=== PATIENT | female | born 1935 | race Hispanic/Latino ===

== ENCOUNTER 2018-10-27 13:42 | Inpatient (IN) | payer MEDICARE ==
[~2018-10-27] VITALS: Ht 162.6 cm; Wt 115.2 kg
[~2018-10-27 13:42] MED LIST: ALLOPURINOL100 MG PO; ATIVAN1 MG PO; CALCITRIOL0.25 MCG PO; FAMOTIDINE20 MG PO; FERROUS SULFAT325 MG PO; FISH OIL500 MG PO; FUROSEMIDE40 MG PO; KLOR-CON20 MEQ PO; METOPROLOL SUCC50 MG PO; MINOCIN50 MG PO; OXYBUTYNIN CHLOR5 M1; OXYBUTYNIN CHLOR5 MG PO; PANTOPRAZOLE SO40 MG PO; POLYETHYLENE GL17 GM PO; SIMVASTATIN40 MG PO; TRAZODONE HCL100 MG PO; ULTRAM50 MG PO; VITAMIN C250 MG PO; XARELTO20 MG PO; XOPENEX HFA15 GM
--- OUTSIDE RECORDS SUMMARY | 2018-10-27 13:45 | XMS REPORT | Summary of Care ---
Author Author [facility] Organization [facility] Address Unknown Phone Unavailable Encounter HQ [employer]tr_rejigena(FIN) [id number] Date(s): 03/23/18 - 03/23/18 [facility] [address] [place] [address]- [phone] Discharge Disposition: Home or Self Care Attending Physician: Clare Bonilla MD Referring Physician: Clare Bonilla MD Vital Signs No data available for this section Problem List No data available for this section Allergies, Adverse Reactions, Alerts No data available for this section Medications No data available for this section Results No data available for this section Immunizations No data available for this section Procedures No data available for this section Social History No data available for this section Assessment and Plan No data available for this section
--- OUTSIDE RECORDS SUMMARY | 2018-10-27 13:45 | XMS REPORT | Continuity of Care Document ---
Author Author [facility] Address Unknown Phone Unavailable Problems Problem Status Onset Date Classification Date Reported Comments Source R60.9 Active 03/16/2018 [facility] R60.9 N18.4 I12.9 E66.01 Active 09/04/2017 [facility] EDEMA, UNSPECIFIED Active [facility] PERIPHERAL VASCULAR DISEASE, UNSPECIFIED Active [facility] Medications Medication Details Route Status Patient Instructions Ordering Provider Order Date Source Allergies, Adverse Reactions, Alerts Substance Category Reaction Severity Reaction type Status Date Reported Comments Source Immunizations Immunization Date Given Site Status Last Updated Comments Source Results Order Name Results Value Reference Range Date Interpretation Comments Source Ext Lower Arterial bilat w pressure US Ext Lower Arterial bilat w pressure US Please refer to heart lab report, located under Vascular in CARE4. 03/23/2018 - - Electronically Signed by: Guillaume Kwan 03/23/18 17:24 FINAL REPORT [facility] Ext Lower Arterial bilat w pressure US Ext Lower Arterial bilat w pressure US Please refer to the heartlab report, located under vascular in CARE4. 09/05/2017 - - Electronically Signed by: Brandi Vega 09/10/17 10:45 FINAL REPORT [facility] Ext Lower Venous Doppler Bilat US Ext Lower Venous Doppler Bilat US Ext Lower Venous Doppler Bilat US CLINICAL HX: R60.9 Edema, unspecified - R60.9 Edema, unspecified; bilateral leg swelling COMPARISON: none TECHNIQUE: Diaz scale imaging, compression techniques and spectral analysis were utilized to evaluate the deep venous system of both lower extremities from the inguinal ligament to the popliteal fossa. FINDINGS: There is adequate compression, respiratory variability, and appropriate response to augmentation in the CFV, FV and popliteal veins in both thighs. The junction of the profunda vein to the SFV is patent bilaterally. Posterior tibial trunk and the saphenous vein demonstrate normal compressibility. IMPRESSION: No evidence for deep vein thrombosis in the examined veins of both lower extremities. SL: [id number] 09/05/2017 - - Read by: Fred Reynolds MD Dictated Date/time: 09/05/17 16:41 Electronically Signed by: Fred Reynolds MD 09/05/17 16:43 FINAL REPORT [facility] Vital Signs Vital Sign Value Date Comments Source Encounters Location Location Details Encounter Type Encounter Number Reason For Visit Attending Provider ADM Date DC Date Status Source [facility] [id number] Clare Bonilla 03/23/2018 03/24/2018 [facility] Procedures Procedure Code Date Perfomer Comments Source
--- OUTSIDE RECORDS SUMMARY | 2018-10-27 13:45 | XMS REPORT ---
Author [facility] Address Unknown Phone Unavailable Care Team Providers Care Consulting Technical Director Name Role Phone Unavailable Unavailable Payers Payer Name Policy Type Policy Number Effective Date Expiration Date Problems This patient has no known problems. Allergies, Adverse Reactions, Alerts Allergy Name Allergy Type Status Severity Reaction(s) Onset Date Inactive Date Treating Clinician Comments No Known Drug Allergies DA Active U 2018-08-10 00:00:00 Penicillins DA Active U 2018-08-10 00:00:00 Sulfa (Sulfonamide Antibiotics) DA Active U 2018-08-10 00:00:00 No Known Drug Allergies DA Active U 2015-06-11 00:00:00 Medications This patient has no known medications.
[2018-10-27 14:28] LABS: BASOPHILS % 0.1 % (0.0-1.0); EOSINOPHILS # (AUTO) 0.1 (0.0-0.4); EOSINOPHILS % 0.7 % (0.0-6.0); HEMATOCRIT 33.8 % (34.2-44.1); HEMOGLOBIN 9.5 g/dL (12.0-16.0); LYMPHOCYTES # (AUTO) 0.5 (1.0-3.2); LYMPHOCYTES % 4.7 % (18.0-39.1); MEAN CORPUSCULAR HEMOGLOBIN 29.5 pg (28-32); MEAN CORPUSCULAR HGB CONC 28.1 g/dL (31-35); MONOCYTES # (AUTO) 0.5 (0.2-0.8); MONOCYTES % 5.1 % (4.4-11.3); PLATELET COUNT 247 x10e3/uL (140-360); RED BLOOD COUNT 3.22 x10e6/uL (3.6-5.1); RED CELL DISTRIBUTION WIDTH 18.8 % (11.7-14.4)
--- NOTE | 2018-10-27 14:33 | Diagnostic Imaging Report ---
Examination: Single AP view of the chest. COMPARISON: 04/23/2017 INDICATION: Cough DISCUSSION: Right internal jugular tunneled hemodialysis catheter is noted. The tip projects over the low superior vena cava. Enlargement of the cardiac silhouette with moderate bilateral pleural effusions and lower and midlung opacities, likely atelectasis. Prominence of the central pulmonary interstitium. No acute osseous abnormalities. Findings suggestive of chronic right rotator cuff tear. IMPRESSION: Interval placement of a tunneled hemodialysis catheter by a right IJ approach, with the tip projecting over the low superior vena cava. Cardiomegaly with pulmonary edema, moderate bilateral pleural effusions, and probable passive atelectasis of the lower lobes. Signed by: Dr. Trevon Christensen M.D. on 10/27/2018 2:30 PM
[2018-10-27 14:35] LABS: INR 0.95; PROTHROMBIN TIME 13.6 seconds (11.9-14.5)
[2018-10-27 14:36] LABS: PARTIAL THROMBOPLASTIN TIME 50.4 seconds (23.8-35.5)
[2018-10-27 14:42] LABS: ALBUMIN 2.6 g/dL (3.5-5.0); ALBUMIN/GLOBULIN RATIO 0.7 (0.8-2.0); ANION GAP 13.3 mmol/L (8-16); CALCIUM 8.8 mg/dL (8.4-10.2); CREATININE, SERUM 2.6 mg/dL (0.57-1.11); POTASSIUM 3.3 mmol/L (3.5-5.1)
[2018-10-27 14:49] LABS: CREATINE KINASE MB 2.2 ng/mL (0-5.0)
[2018-10-27 14:51] LABS: B-TYPE NATRIURETIC PEPTIDE2 624.2 pg/mL (0-100)
[2018-10-27] MEDS ORDERED: FUROSEMIDE INJ 10 MG/ML 4 ML VIAL IV ONE (15:30)
[2018-10-27] MEDS ORDERED: FUROSEMIDE INJ 10 MG/ML 4 ML VIAL ONE (15:31)
[2018-10-27] MEDS: CEFTRIAXONE SOD 1 GM VIAL IV SCH (15:35)
[2018-10-27] MEDS: AZITHROMYCIN 500MG/NS 250 ML 250 ML IV SCH (15:35)
[2018-10-27 15:44] LABS: BILIRUBIN,URINE 1+ (NEGATIVE); CLARITY,URINE HAZY (CLEAR); COLOR,URINE AMBER (YELLOW); KETONES,URINE NEGATIVE (NEGATIVE); LEUKOCYTE ESTERASE ,URINE 2+ (NEGATIVE); NITRITE,URINE NEGATIVE (NEGATIVE); PROTEIN,URINE DIPSTICK 2+ (NEGATIVE); URINE UROBILINOGEN 0.2 mg/dL (0.2 - 1)
[2018-10-27 15:56] LABS: BACTERIA,URINE MANY /HPF; RBC,URINE 21-50 /HPF (0-5); WBC,URINE (MAN) >50 /HPF (0-5)
[2018-10-27] MEDS ORDERED: FUROSEMIDE INJ 10 MG/ML 4 ML VIAL IV SCH (17:00)
[2018-10-27 21:00] VITALS: BP 90/40
[2018-10-27 21:31] VITALS: BP 73/31
[2018-10-27 22:01] VITALS: BP 80/46
[2018-10-27 23:29] LABS: CREATINE KINASE MB 2.4 ng/mL (0-5.0)
[2018-10-28] VITALS (67 sets, daily range): BP systolic 70–121; BP diastolic 31–82
[2018-10-28] MEDS: CEFTRIAXONE SOD 1 GM VIAL IV SCH ×2 (03:08→17:54)
[2018-10-28] MEDS: FUROSEMIDE INJ 10 MG/ML 4 ML VIAL IV SCH ×2 (03:09→09:00)
[2018-10-28 05:21] LABS: BASOPHILS % 0.2 % (0.0-1.0); EOSINOPHILS % 0.2 % (0.0-6.0); HEMATOCRIT 34.3 % (34.2-44.1); HEMOGLOBIN 9.4 g/dL (12.0-16.0); LYMPHOCYTES # (AUTO) 0.5 (1.0-3.2); LYMPHOCYTES % 5.1 % (18.0-39.1); MEAN CORPUSCULAR HGB CONC 27.4 g/dL (31-35); MEAN CORPUSCULAR VOLUME 105.9 fL (81-99); MONOCYTES # (AUTO) 0.5 (0.2-0.8); MONOCYTES % 5.3 % (4.4-11.3); NEUTROPHILS # (AUTO) 8.5 (2.1-6.9); NEUTROPHILS % 88.7 % (38.7-80.0); PLATELET COUNT 220 x10e3/uL (140-360); RED BLOOD COUNT 3.24 x10e6/uL (3.6-5.1); RED CELL DISTRIBUTION WIDTH 18.8 % (11.7-14.4)
[2018-10-28 05:40] LABS: CREATINE KINASE MB 2.6 ng/mL (0-5.0)
[2018-10-28 06:09] LABS: ALBUMIN 2.6 g/dL (3.5-5.0); ALBUMIN/GLOBULIN RATIO 0.7 (0.8-2.0); ANION GAP 14.6 mmol/L (8-16); CALCIUM 9.1 mg/dL (8.4-10.2); CREATININE, SERUM 3.2 mg/dL (0.57-1.11); PHOSPHORUS 4.3 MG/DL (2.3-4.7); POTASSIUM 3.6 mmol/L (3.5-5.1)
--- NOTE | 2018-10-28 06:22 | Diagnostic Imaging Report ---
EXAM: CHEST SINGLE (PORTABLE), AP 1 view INDICATION: CHF, low blood pressure COMPARISON: AP view of the chest October 27, 2018 FINDINGS: LINES/TUBES: Stable right internal jugular vein tunneled hemodialysis catheter. LUNGS: Pulmonary edema and bibasilar atelectasis. PLEURA: Layering bilateral pleural effusions. HEART AND MEDIASTINUM: Stable enlargement. BONES AND SOFT TISSUES: No acute findings. IMPRESSION: No interval change. Signed by: Dr. Hiwot Gayle M.D. on 10/28/2018 6:19 AM
[2018-10-28 07:13] LABS: PLATELET ESTIMATE ADEQUATE; PLATELET MORPHOLOGY COMMENT NORMAL; RBC MORPHOLOGY COMMENT NORMAL
[2018-10-28 07:14] LABS: ANISOCYTOSIS SLIGHT
[2018-10-28 07:17] LABS: HYPOCHROMASIA SLIGHT
[2018-10-28] MEDS: MIDODRINE HCL 5 MG TABLET PO SCH ×3 (07:25→17:54)
[2018-10-28] MEDS: AZITHROMYCIN 500MG/NS 250 ML 250 ML IV SCH (07:30)
[2018-10-28] MEDS ORDERED: ALBUMIN 25% 25GM 0.25 GM/ML BTL IV ONE (08:45)
[2018-10-28] MEDS ORDERED: ALBUMIN 25% 25GM 100 ML IV ONE (09:00)
[2018-10-28] MEDS: POLYETHYLENE GLYCOL 3350 17 GM PACK PO SCH (09:00)
[2018-10-28] MEDS: CALCITRIOL 0.25 MCG CAP PO SCH (09:02)
--- NOTE | 2018-10-28 09:05 | History and Physical ---
PRIMARY CARE PHYSICIAN: Dr. Naun Bonilla CHIEF COMPLAINT: Shortness of breath and low blood pressure. HISTORY OF PRESENT ILLNESS: This is 83-year-old woman with a history of end-stage renal disease, on hemodialysis, who was at dialysis yesterday when she developed low blood pressure, systolic blood pressure 75, subsequently they gave a bolus of 1 liter, blood pressure dropped to 60s. Patient was sent to the hospital. Patient was also having cough for the past 2 weeks and has been short of breath. Here, she is found to be hypotensive, have pleural effusion, and pulmonary edema and signs of severe sepsis. She has acute exacerbation of systolic CHF. She is admitted for further evaluation and management. PAST MEDICAL HISTORY: Systolic congestive heart failure; diabetes mellitus type 2; end-stage renal disease, on hemodialysis due to diabetes; chronic atrial fibrillation; aspiration pneumonia; bacteremia; anemia of chronic disease. PAST SURGICAL HISTORY: Hemodialysis catheter placement. ALLERGIES: PER ELECTRONIC MEDICAL RECORD. FAMILY/SOCIAL HISTORY: Patient is . No alcohol, illicits, or cigarettes. MEDICATIONS: Per electronic medical record. REVIEW OF SYSTEMS: Denies any chest pain. Denies any fever, chills, sweats. Denies any headache, vision changes. PHYSICAL EXAMINATION: VITAL SIGNS: Have been reviewed. GENERAL APPEARANCE: Tired-appearing woman resting in bed. HEENT: Anicteric. CARDIOVASCULAR: Normal S1 and S2. LUNGS: She has reduced breath sounds throughout. ABDOMEN: Soft. Epigastrium is tender. EXTREMITIES: She has left leg erythema. She has right foot with third digit with ulcer on the plantar surface. SKIN: Dry. PSYCHIATRIC: Flat affect. NEUROLOGICAL: Alert and oriented x2. MUSCULOSKELETAL: She has right chest hemodialysis catheter. LABS: Reviewed. MEDICATIONS: Reviewed. ASSESSMENT: This is 83-year-old woman. 1. Severe sepsis. 2. Urinary tract infection. 3. Right foot toe ulcer. 4. Acute exacerbation of systolic congestive heart failure. 5. Diabetes mellitus type 2. 6. End-stage renal disease, on hemodialysis. 7. Chronic atrial fibrillation. 8. Hyponatremia. 9. Hypokalemia. PLAN: 1. Will continue with IV ceftriaxone and IV azithromycin, and consider changing to IV Zosyn. 2. Unable to diurese patient due to hypotension. Will start midodrine 10 q.8. and reassess. 3. Hold Lasix if blood pressure is less than 110. 4[address] central line and move to the ICU. May need pressors. 5. Consult nephrology and cardiology. 6. Obtain 2D echocardiogram. 7. Recheck sodium level this afternoon. 8. Change ceftriaxone to IV Zosyn. 9. Follow up cultures. 10. Will use SCD and Pepcid. 11. Consult wound care for the foot ulcer. 12. Physical therapy consultation. Job#: [id number]
[2018-10-28 09:25] LABS: ABG HCO3 29 mmol/L (23-28); ABG PCO2 58 mmHg (41-51); ABG PO2 81 mmHg (80-105)
--- NOTE | 2018-10-28 11:48 | Diagnostic Imaging Report ---
ADDENDUM #1 Addendum: A total of 3 portable images were obtained. First image shows catheter and wire in the right internal jugular vein extending cephalad into the neck, having met resistance with the indwelling tunneled hemodialysis catheter. The sheath of the micropuncture access device was then pulled back and Glidewire was manipulated without resistance and a second portable chest was obtained. This chest shows the glide wire extending along the tunneled hemodialysis catheter centrally. Final image was obtained after dilatation over the glide wire with a 7 Indonesian catheter and placement of a 7 Indonesian Arrow triple-lumen 16 cm long non tunneled central venous catheter. Tip of this overlies the right atrium. Impression: Successful placement of a triple-lumen central venous catheter at the bedside. Signed by: Dr. Jose Alejandro Matthews DO on 10/28/2018 1:24 PM ORIGINAL REPORT EXAMINATION: CHEST XRAY LINE PLACEMENT COMPARISON: 10/17/2016, chest x-ray 0548 hours INDICATION: Line placement DISCUSSION: Frontal view of the chest obtained at 1112 hours. The study is compromised due to underpenetration of the image. HEART AND MEDIASTINUM: Heart is poorly visualized. LINES: Dual lumen central venous catheter terminates in the distal SVC and is grossly stable in position. There are multiple EKG wires overlying the chest. A new central line, if present, is not visible. LUNGS: Left lung is poorly visualized. There are diffuse alveolar airspace opacities. PLEURA: Small right pleural effusion tracking laterally. A left pleural effusion cannot be excluded. No evidence of pneumothorax. BONES AND SOFT TISSUES: No focal osseous lesion. The soft tissues are normal. IMPRESSION: Compromised examination due to underpenetration of the image. Central venous catheter is similar in position. Diffuse subareolar airspace opacities are suspected suggestive of pulmonary edema. Small right pleural effusion. No pneumothorax. Signed by: Dr. Allison Whittaker MD on 10/28/2018 11:44 AM
--- NOTE | 2018-10-28 13:33 | Diagnostic Imaging Report ---
This report includes an Addendum and supersedes previous reports for this exam. PROCEDURE:ULTRASOUND GUIDANCE FOR VASCULAR ACCESS COMPARISON:None. INDICATIONS:Patient with end-stage renal disease and an indwelling tunneled right IJ hemodialysis catheter. Patient needs further IV access and bedside central line placement is requested. FINDINGS:The right vein is noted to be patent and there is a tunneled hemodialysis catheter present. Ultrasound guidance was utilized for access for central line placement line placement. Percutaneous puncture of the right internal jugular vein was accomplished with ultrasound guidance after local anesthesia and sterile preparation. A 21 gauge skinny needle was placed into the internal jugular vein. The 0.018 inch [place] tip wire met resistance upon placement. The micro-sheath was advanced over this skinny wire. Amplatz superstiff wire was placed through the micropuncture sheath. This also met resistance. A series of portable chest x-rays were then performed. A 0.035 inch Glidewire was placed through the micropuncture sheath. Portable chest shows the Glidewire looped upon itself extending cephalad into the neck. Upon this observation the micropuncture sheath was pulled back and the wire was pulled back and successfully manipulated centrally into the SVC alongside the tunneled hemodialysis catheter. A second chest x-ray was performed confirming this position. Dilatation over the glide wire was then accomplished with a 7 [place] Citizen dilator. A 7 [place] Citizen 16 cm long Arrow triple-lumen central line was then placed centrally without difficulty. Third portable chest x-ray was performed confirming adequate position of the central line with the tip present in the right atrium. CONCLUSION:Patent right internal jugular vein. Successful ultrasound guidance for central line placement. Jose Alejandro Matthews D.O. Dictated by: Jose Alejandro Matthews D.O. on 10/28/2018 at 13:43 Electronically approved by: Jose Alejandro Matthews D.O. on 10/28/2018 at 13:43 ADDENDUM: The right internal jugular vein is patent but there is a tunneled hemodialysis catheter present. Ultrasound was utilized for vascular access to place a central line. Permanent recording was made for the medical record. Jose Alejandro Matthews D.O. Dictated by: Jose Alejandro Matthews D.O. on 11/16/2018 at 8:04 Electronically approved by: Jose Alejandro Matthews D.O. on 11/16/2018 at 8:04
--- NOTE | 2018-10-28 13:33 | Diagnostic Imaging Report ---
This report includes an Addendum and supersedes previous reports for this exam. PROCEDURE:ULTRASOUND GUIDANCE FOR VASCULAR ACCESS COMPARISON:None. INDICATIONS:Patient with end-stage renal disease and an indwelling tunneled right IJ hemodialysis catheter. Patient needs further IV access and bedside central line placement is requested. FINDINGS:The right vein is noted to be patent and there is a tunneled hemodialysis catheter present. Ultrasound guidance was utilized for access for central line placement line placement. Percutaneous puncture of the right internal jugular vein was accomplished with ultrasound guidance after local anesthesia and sterile preparation. A 21 gauge skinny needle was placed into the internal jugular vein. The 0.018 inch [place] tip wire met resistance upon placement. The micro-sheath was advanced over this skinny wire. Amplatz superstiff wire was placed through the micropuncture sheath. This also met resistance. A series of portable chest x-rays were then performed. A 0.035 inch Glidewire was placed through the micropuncture sheath. Portable chest shows the Glidewire looped upon itself extending cephalad into the neck. Upon this observation the micropuncture sheath was pulled back and the wire was pulled back and successfully manipulated centrally into the SVC alongside the tunneled hemodialysis catheter. A second chest x-ray was performed confirming this position. Dilatation over the glide wire was then accomplished with a 7 Romanian dilator. A 7 Romanian 16 cm long Arrow triple-lumen central line was then placed centrally without difficulty. Third portable chest x-ray was performed confirming adequate position of the central line with the tip present in the right atrium. CONCLUSION:Patent right internal jugular vein. Successful ultrasound guidance for central line placement. Jose Alejandro Matthews D.O. Dictated by: Jose Alejandro Matthews D.O. on 10/28/2018 at 13:43 Electronically approved by: Jose Alejandro Matthews D.O. on 10/28/2018 at 13:43 ADDENDUM: The right internal jugular vein is patent but there is a tunneled hemodialysis catheter present. Ultrasound was utilized for vascular access to place a central line. Permanent recording was made for the medical record. Jose Alejandro Matthews D.O. Dictated by: Jose Alejandro Matthews D.O. on 11/16/2018 at 8:04 Electronically approved by: Jose Alejandro Matthews D.O. on 11/16/2018 at 8:04
--- NOTE | 2018-10-28 14:16 | Consultation ---
DATE OF CONSULTATION: October 28, 2018 CARDIOLOGY CONSULTATION REASON FOR CONSULTATION: Shortness of breath. HISTORY OF PRESENT ILLNESS: An 83-year-old woman who has a history of diastolic congestive heart failure, diabetes mellitus, obesity, end-stage renal disease on hemodialysis, chronic atrial fibrillation and anemia who presented from her facility with low blood pressure. This was noted during her dialysis session which did not respond to liter bolus, and she was brought here for higher level of care. The patient has confusion and possible dementia and cannot provide me the exact details of her medical history or her presenting symptoms. Upon arrival here, she was noted to have a pleural effusion and mild pulmonary edema, and was admitted for further treatment and evaluation. REVIEW OF SYSTEMS: Unable to be obtained due to confused and lethargic status. PAST MEDICAL HISTORY: Diastolic heart failure, diabetes mellitus, end-stage renal disease, chronic atrial fibrillation. PAST SURGICAL HISTORY: Dialysis catheter placement. PAST FAMILY HISTORY: No premature coronary artery disease or sudden cardiac . SOCIAL HISTORY: No illicit drug use or history of tobacco use. ALLERGIES: SULFA, PENICILLIN. MEDICATIONS: See medication reconciliation form. PHYSICAL EXAMINATION VITAL SIGNS: Temperature 96.7, heart rate 80, blood pressure 86/53, oxygen saturation 96% on 5 liters nasal cannula. GENERAL: She is a morbidly obese, chronically ill-appearing elderly woman in no apparent distress. EYES: Conjunctivae clear. Extraocular muscles appear intact. CARDIOVASCULAR: Irregularly, irregular with no murmurs. LUNGS: Diminished breath sounds in bilateral bases. Mild rhonchi. ABDOMEN: Obese. EXTREMITIES: There is significant edema of upper and lower extremities with erythema over the left lower extremity. NEUROLOGIC: The patient appears lethargic and confused. LABORATORY DATA: Reviewed, and shows a normal white blood cell count at 9.57, hemoglobin 9.4, sodium 128, creatinine 3.2, negative cardiac enzymes. IMAGING: Reviewed and shows diffuse subareolar airspace opacities and a small right pleural effusion. A 2D echocardiogram showed overall preserved left ventricular systolic function with estimated ejection fraction of 60% to 65% with no significant valvular abnormalities. IMPRESSION 1. Severe sepsis with hypotension. 2. Urinary tract infection and possible pneumonia. 3. Egwjd-hf-tcsuyiu diastolic heart failure. 4. End-stage renal disease on hemodialysis. 5. Diabetes mellitus. 6. Atrial fibrillation. 7. Hyponatremia. RECOMMENDATIONS: The patient has mildly low blood pressures; however, these are likely not accurate given the noninvasive approach on this very edematous, obese patient. If needed, may consider arterial line placement for adequate blood pressure measurements. Continue with volume removal per hemodialysis. Her left ventricular systolic function remains preserved at 60% to 65%. Cause for hypotension is likely sepsis in nature. Defer antibiotics to primary team. The patient was not on anticoagulation for atrial fibrillation due to a prior gastrointestinal bleed. Thank you for the consultation. Will follow along with you. Job#: [id number]
--- NOTE | 2018-10-28 14:51 | Consultation ---
DATE OF CONSULTATION: October 28, 2018 History derived partly from chart and partly from the patient and nurse. This is an 83-year-old female who has been transferred to the ICU with acute respiratory failure. Had been having cough with shortness of breath. The shortness of breath progressively worsened. Became hypotensive. Blood pressure in the 80s on the floor. Right now, blood pressure is 106 systolic. She is very sleepy, arousable, quite obese, and appears obviously both upper and lower extremities, as well as flanks. No dyspnea noted. She denies prior renal insufficiency. Admits to heart disease and diabetes. Relatively poor historian at the moment. Denies any shortness of breath or difficulty breathing. Workup including urine culture shows enterococcus species. ALLERGIES: SULFA AND PENICILLIN. CURRENT MEDICATIONS 1. Midodrine 10 mg p.o. t.i.d. 2. Started on furosemide 40 mg IV q.12 h. which I am going to stop. 3. Also, on azithromycin. 4. Calcitriol 0.25 mg daily. 5. Ceftriaxone 1 g q.12 h. Please see MAR for details. PAST MEDICAL HISTORY: Significant for type 2 diabetes. She also has a history of end-stage renal disease, on hemodialysis due to diabetes, chronic atrial fibrillation, history of aspiration pneumonia, anemia of chronic kidney disease. SOCIAL HISTORY: The patient is a . Denies any alcohol or tobacco use. History of congestive heart failure as well. PHYSICAL EXAMINATION VITALS: Shows blood pressure of 96 at the moment. It dropped. Pulse rate 82, diastolic 47. She is on 5 L nasal cannula. HEAD AND NECK: Oral mucosa is moist. Neck veins could not be appreciated. LUNGS: Upon exam, decreased air entry. Scattered rales. HEART: Distant heart sounds. No rubs. ABDOMEN: Obese. Flanks full. One plus flank and abdominal wall edema. EXTREMITIES: Lower extremities with 1-2+ edema. Upper extremities 2+ edema. IMPRESSION AND PLAN 1. Possible sepsis with shock. 2. Significant pulmonary edema. 3. Fluid overload, third-spacing. 4. Underlying end-stage renal disease. 5. Patient is an extremely poor historian: Very stuporous. Will arrange for stat dialysis. Start vasopressin for blood pressure control. Consult infectious disease. May need IV gentamicin. Has complicated urinary tract infection. Significant edema, third-spacing, but generalized body anasarca in flanks. Vasopressin support. Infectious disease consultation. Will probably need aminoglycosides as well. Defer to ID. Please see orders. Job#: [id number] LIZBETH
[2018-10-28] MEDS ORDERED: SODIUM CHLORIDE 0.9% 1000ML 1,000 ML ONE (16:51)
[2018-10-28] MEDS ORDERED: ALBUMIN 25% 12.5GM 100 ML IV ONE (17:20)
[2018-10-28] MEDS ORDERED: HEPARIN SOD (PORCINE) 5,000 UNIT/ML VIAL ONE (20:24)
[2018-10-28] MEDS ORDERED: HEPARIN SOD (PORCINE) 1000 UNIT/ML SDV ONE (20:26)
[2018-10-29] VITALS (88 sets, daily range): BP systolic 65–130; BP diastolic 22–107
[2018-10-29 04:51] LABS: BASOPHILS % 0.2 % (0.0-1.0); HEMATOCRIT 33.3 % (34.2-44.1); LYMPHOCYTES # (AUTO) 0.3 (1.0-3.2); LYMPHOCYTES % 2.5 % (18.0-39.1); MEAN CORPUSCULAR HEMOGLOBIN 29.2 pg (28-32); MEAN CORPUSCULAR VOLUME 108.1 fL (81-99); MONOCYTES # (AUTO) 0.4 (0.2-0.8); MONOCYTES % 4.3 % (4.4-11.3); NEUTROPHILS # (AUTO) 9.4 (2.1-6.9); NEUTROPHILS % 92.3 % (38.7-80.0); PLATELET COUNT 198 x10e3/uL (140-360); RED BLOOD COUNT 3.08 x10e6/uL (3.6-5.1); RED CELL DISTRIBUTION WIDTH 19.2 % (11.7-14.4)
[2018-10-29 05:19] LABS: ALBUMIN 3.1 g/dL (3.5-5.0); ALBUMIN/GLOBULIN RATIO 0.9 (0.8-2.0); ANION GAP 14.8 mmol/L (8-16); CALCIUM 9.2 mg/dL (8.4-10.2); CREATININE, SERUM 2.58 mg/dL (0.57-1.11); MAGNESIUM 2.1 MG/DL (1.3-2.1); PHOSPHORUS 4.7 MG/DL (2.3-4.7); POTASSIUM 3.8 mmol/L (3.5-5.1)
[2018-10-29] MEDS: CEFTRIAXONE SOD 1 GM VIAL IV SCH (05:43)
--- NOTE | 2018-10-29 06:56 | Diagnostic Imaging Report ---
EXAM: CHEST SINGLE (PORTABLE), AP 1 view INDICATION: CHF COMPARISON: AP view of the chest October 20, 2018 FINDINGS: LINES/TUBES: Stable appearance of right internal jugular vein tunneled hemodialysis catheter and internal jugular vein central line. LUNGS: Diffuse pulmonary edema. PLEURA: Moderate to large right layering pleural effusion. Complete opacification of the left lung, presumably from pleural effusion. HEART AND MEDIASTINUM: The heart is obscured. BONES AND SOFT TISSUES: No acute findings. IMPRESSION: Findings of fluid overload. Complete opacification of the left lung is presumably secondary to very large pleural effusion. This could be confirmed by ultrasound. Signed by: Dr. Hiwot Gayle M.D. on 10/29/2018 6:53 AM
[2018-10-29] MEDS: MIDODRINE HCL 5 MG TABLET PO SCH ×3 (08:00→17:15)
[2018-10-29 08:19] LABS: HOWELL-JOLLY BODIES FEW; HYPOCHROMASIA SLIGHT; RBC MORPHOLOGY COMMENT NORMAL
[2018-10-29 08:20] LABS: ANISOCYTOSIS SLIGHT; PLATELET ESTIMATE ADEQUATE; PLATELET MORPHOLOGY COMMENT NORMAL; POIKILOCYTOSIS SLIGHT
[2018-10-29] MEDS ORDERED: AZTREONAM 1 GM VIAL IV SCH (09:00)
[2018-10-29] MEDS ORDERED: AZTREONAM 1 GM/NS 50 ML 50 ML IV SCH (09:00)
[2018-10-29] MEDS: CALCITRIOL 0.25 MCG CAP PO SCH (09:00)
[2018-10-29] MEDS: BALSAM PERU/CASTOR OIL 5 GM OINT...G. TP SCH (09:00)
[2018-10-29] MEDS: POLYETHYLENE GLYCOL 3350 17 GM PACK PO SCH ×2 (09:00→14:47)
[2018-10-29] MEDS ORDERED: SODIUM CHLORIDE 0.9% 1000ML 1,000 ML ONE (09:24)
[2018-10-29] MEDS ORDERED: ALBUMIN 25% 12.5GM 150 ML IV ONE (09:25)
--- NOTE | 2018-10-29 10:13 | Diagnostic Imaging Report ---
PROCEDURE:US CHEST (INCL MEDIASTINUM) COMPARISON:Chest radiograph 10/28/18. INDICATIONS:PLEURAL EFFUSION FINDINGS: Limited ultrasound of the bilateral chest performed demonstrating moderate bilateral pleural effusions. CONCLUSION: Moderate bilateral pleural effusions. Dictated by: VERONICA BAUTISTA M.D. on 10/29/2018 at 10:22 Electronically approved by: VERONICA BAUTISTA M.D. on 10/29/2018 at 10:22
[2018-10-29] MEDS ORDERED: VECURONIUM BROMIDE FOR INJ 20 MG VIAL ONE (10:48)
[2018-10-29] MEDS ORDERED: MIDAZOLAM HCL 2 MG/2 ML VIAL ONE (10:48)
[2018-10-29] MEDS ORDERED: ETOMIDATE 40 MG/ 20ML VIAL IV ONE (10:48)
[2018-10-29] MEDS ORDERED: EPINEPHRINE HCL SYRINGE ONE (10:48)
[2018-10-29] MEDS ORDERED: SUCCINYLCHOLINE CHLORIDE 20 MG/ML 10ML VIAL ONE (10:48)
[2018-10-29] MEDS ORDERED: WATER STERILE 10 ML VIAL ONE (10:48)
[2018-10-29] MEDS ORDERED: HEPARIN SOD (PORCINE) 1000 UNIT/ML SDV ONE (12:08)
--- NOTE | 2018-10-29 13:39 | Progress Note ---
DATE: October 29, 2018 CARDIOLOGY PROGRESS NOTE SUBJECTIVE: Patient transferred to the intensive care unit for vasopressin and hemodialysis. Patient reports shortness of breath. Otherwise, denies any other events or symptoms. OBJECTIVE VITAL SIGNS: Temperature 97, heart rate 95, respirations 22, blood pressure 103/63, oxygen saturation 98% on 5 liters nasal cannula. GENERAL: She is a chronically ill-appearing, obese woman lying in bed in no apparent distress. LUNGS: Decreased breath sounds bilaterally with scattered rales. CARDIOVASCULAR: Regular rate and rhythm. Normal S1. No murmur. ABDOMEN: Soft, nontender. EXTREMITIES: Anasarca. MEDICATIONS: Reviewed. LABORATORY, MICROBIOLOGY AND IMAGING: Reviewed, which showed Proteus mirabilis in her urine culture. IMPRESSION 1. Severe sepsis with hypotension. 2. Urinary tract infection. 3. Kbknj-fm-axltcjq diastolic heart failure. 4. End-stage renal disease on hemodialysis. 5. Diabetes mellitus. 6. Atrial fibrillation. 7. Hyponatremia. RECOMMENDATIONS: If continued on vasopressors, would recommend arterial line for adequate blood pressure analysis. I suspect her blood pressure is lower due to her anasarca and inability to accurately assess her blood pressure on a noninvasive cuff. Otherwise, continue all the cardiovascular medications and will need volume removal with hemodialysis. Consider thoracentesis for pleural effusions. No anticoagulation at this time given her prior history of gastrointestinal bleed. Thank you for the consultation. Will continue to follow with you. Job#: [id number]
--- NOTE | 2018-10-29 14:06 | Consultation ---
DATE OF CONSULTATION: October 29, 2018 PULMONARY CONSULTATION REASON FOR CONSULTATION: Abnormal chest x-ray and shortness of breath. HPI: Ms. Bhakta is an 83-year-old female. She is admitted to Dr. Musa with complaints of shortness of breath and hypotension. Patient is denying any complaints of nausea, vomiting, or diarrhea. She reports that the shortness of breath is progressively getting worse per the niece, and the blood pressure was low, so she was sent over here. She dropped the blood pressure during dialysis as well. Her chest x-ray is suggestive of severe dense bilateral alveolar infiltrates. Ultrasound of the chest was done which showed small effusion and possibly consolidation and pneumonia. She is denying any complaints of nausea or vomiting. REVIEW OF SYSTEMS GENERAL: Denies any fever or chills. HEAD: Denies any head trauma. ENT: Denies any earache. CVS: Denies any chest pain. RESPIRATORY: Shortness of breath. GI: Denies any nausea or vomiting. OTHER: Rest of the review of systems are negative except as in HPI. PAST MEDICAL HISTORY: Hypertension, hyperlipidemia, morbid obesity, likely obstructive sleep apnea. Patient has been living in a senior living. End-stage renal disease, anemia of chronic disease and atrial fibrillation. PAST SURGICAL HISTORY: Hemodialysis catheter placement. FAMILY AND SOCIAL HISTORY: Does not smoke. Does not drink. PHYSICAL EXAMINATION VITAL SIGNS: Temperature 97.7, pulse of 95, blood pressure 110/54. Respiratory rate 18 to 20. O2 sat 98% on 5 liters. GENERAL: She is morbidly obese. She is arousable, but sleepy. HEENT: Head is atraumatic, normocephalic. Dry mouth. NECK: Supple. CHEST: Poor effort. Decreased air entry on the bases. HEART: S1, S2 audible. ABDOMEN: Soft, nontender, nondistended. EXTREMITIES: Pedal edema. NEUROLOGIC: She is arousable but sleepy. She is following commands. LABS: White count of 10,000; hemoglobin 9.0; platelets 198. Chemistry: Sodium 133, potassium 3.8, chloride 95, BUN 21, creatinine 2.58 and was 3.20 yesterday. Chest x-ray: I reviewed the images. It is showing dense bilateral alveolar infiltrates. Chest ultrasound is showing small effusions. Blood gas is showing pH of 7.30, pCO2 of 58, pO2 81. ASSESSMENT/PLAN: Ms. Bhakta is an 83-year-old female. She is morbidly obese, likely obstructive sleep apnea, currently in fluid overload. History of heart failure and chronic atrial fibrillation. Patient also has underlying mild to moderate dementia. CURRENT PROBLEMS 1. Oebko-xf-pkqmrwb diastolic heart failure. 2. End-stage renal disease on hemodialysis. 3. Fluid overload. 4. High likelihood of obstructive sleep apnea. Per niece, the patient does not have any BiPAP machine. 5. Bilateral pleural effusions, but they are moderate size per the ultrasound. PLAN 1. I will hold off on thoracentesis for now. 2. Hemodialysis in progress. Maybe removal of fluid will help the pleural effusion. Will continue to follow with chest x-rays. If it does not improve, then may need thoracentesis. 3. At this point, I will start the patient on BiPAP as the patient is somnolent and it could be due to hypercapnia. Patient looks like that she has high probability of obstructive sleep apnea. 4. End-stage renal disease on hemodialysis per nephrology recommendation. 5. Urinary tract infection, which is on IV antibiotics, which will be continued. 6. There is a possibility of underlying pneumonia as well. However, there is no leukocytosis, and Azactam will cover if there is any pneumonia. Critical care time spent 45 minutes. Thank you for this consult. Job#: [id number]
[2018-10-29] MEDS: AZITHROMYCIN 500MG/NS 250 ML 250 ML IV SCH (14:58)
--- NOTE | 2018-10-29 16:03 | Consultation ---
DATE OF CONSULTATION: October 29, 2018 REASON FOR CONSULTATION: Sepsis. This patient who is currently in the intensive care unit. She is an 83-year-old white female with a history of end-stage renal disease, on hemodialysis. She got dialysis on October 26, 2018. She became hypotensive. Blood pressure 100/75. She was given 1 bolus liter. When the blood pressure continued to deteriorate, she was seen in the emergency room. She was having cough. Apparently, she has been sick for a couple of weeks before she came to the hospital. She was seen in the emergency room and she was hypotensive, pleural effusion, pulmonary edema, congestive heart failure. Patient was admitted. The patient was seen by Dr. Valdovinos for shortness of breath. Diagnosed with sepsis and UTI. She was seen by Dr. Larsen. Infectious disease was consulted today. The patient is currently in the intensive care unit. Blood culture showed no growth. Urine showed Proteus mirabilis sensitive to aztreonam, ceftazidime, cefepime, gentamicin, and meropenem. Patient also had enterococcus species. Blood cultures are negative. White count is 10.19, hemoglobin 3.08, hemoglobin of 9. Sodium 133, potassium 3.8, creatinine of 2.58. Chest x-ray showed fluid overload. The patient is currently on azithromycin and aztreonam. PHYSICAL EXAMINATION GENERAL: She is currently intubated. No fever. HEENT: Normocephalic. NECK: Supple. CHEST: Few crackles and coarse. HEART: S1 and S2. ABDOMEN: Soft. IMPRESSION 1. Hypotension: Concern about sepsis. Source could be urinary tract infection. 2. Obesity. 3. Diabetes mellitus. 4. Atrial fibrillation. 5. Respiratory failure. I would suggest to obtain a CT of the abdomen and pelvis to rule out intra-abdominal process. Change her to meropenem 500 daily. Discontinue azithromycin. Discontinue Azactam. Will follow. FIOR CHRISTOPHER MD Job#: [id number] RI
[2018-10-29 16:09] LABS: AMYLASE 58 U/L (25-125); LIPASE 63 U/L (8-78)
[2018-10-29] MEDS: MEROPENEM 500MG 500 MG in SODIUM CHLORIDE 0.9% 50ML 50 ML IV SCH (17:14)
[2018-10-29] MEDS: VASOPRESSIN 100 UNIT in DEXTROSE 5% 100ML 100 ML IV PRN (19:00)
[2018-10-29] MEDS ORDERED: NOREPINEPHRINE 8 MG/D5W 250 ML 250 ML ONE (20:21)
[2018-10-29] MEDS ORDERED: MIDAZOLAM HCL 2 MG/2 ML VIAL IV PRN (20:30)
[2018-10-29] MEDS ORDERED: FENTANYL CITRATE INJ 2000 MCG in SODIUM CHLORIDE 0.9% 210 ML IV PRN (20:30)
[2018-10-29 20:43] LABS: ABG PH 7.16 (7.31-7.41)
[2018-10-29 20:44] LABS: ABG HCO3 27 mmol/L (23-28); ABG PCO2 75 mmHg (41-51); ABG PO2 99 mmHg (80-105)
[2018-10-29] MEDS: NOREPINEPHRINE INJ 4MG/4ML 8 MG in DEXTROSE 5% 250ML 250 ML IV PRN (20:45)
[2018-10-29] MEDS: FENTANYL CITRATE INJ 2,000 MCG in SODIUM CHLORIDE 0.9% 250ML 210 ML IV PRN (21:00)
--- NOTE | 2018-10-29 21:21 | Diagnostic Imaging Report ---
EXAM: CHEST SINGLE (PORTABLE), AP 1 view INDICATION: Post intubation COMPARISON: AP view of the chest October 29, 2018 FINDINGS: LINES/TUBES: Tip of endotracheal tube in right mainstem bronchus. Stable position right internal jugular vein tunneled hemodialysis catheter and central line. LUNGS: Stable bilateral pulmonary edema. Improved aeration of the left lung with more focal consolidations in the left upper lung. PLEURA: Small bilateral pleural effusions. HEART AND MEDIASTINUM: The cardiomediastinal silhouette is enlarged. BONES AND SOFT TISSUES: No acute findings. IMPRESSION: 1. Interval intubation with the tip in the right mainstem bronchus. Findings discussed with Shabnam, the ICU nurse for the patient October 29, 2018 at 2115 hours. 2. Interval improved aeration of the left lung with residual consolidation in the left upper lung. Signed by: Dr. Hiwot Gayle M.D. on 10/29/2018 9:18 PM
--- NOTE | 2018-10-29 22:21 | Diagnostic Imaging Report ---
EXAM: CHEST SINGLE (PORTABLE), AP 1 view INDICATION: Endotracheal tube adjustment COMPARISON: AP view of the chest number 2017 at 2032 hours FINDINGS: LINES/TUBES: The endotracheal tube has been retracted and now terminates 2 cm above the ritchie. Stable position right internal jugular vein tunneled hemodialysis catheter and central line LUNGS: Stable pulmonary edema. Interval collapse of the left upper lung. PLEURA: Small bilateral pleural effusions. HEART AND MEDIASTINUM: Stable enlargement. BONES AND SOFT TISSUES: No acute findings. IMPRESSION: 1. Interval retraction of the endotracheal tube, which now terminates 2 cm above the ritchie. 2. Interval collapse of the left upper lung which could be secondary to prior right mainstem bronchus intubation or mucous plugging. Signed by: Dr. Hiwot Gayle M.D. on 10/29/2018 10:18 PM
[2018-10-30] VITALS (89 sets, daily range): BP systolic 77–117; BP diastolic 31–83
[2018-10-30 05:07] LABS: BASOPHILS % 0.2 % (0.0-1.0); EOSINOPHILS % 0.1 % (0.0-6.0); HEMATOCRIT 34.5 % (34.2-44.1); HEMOGLOBIN 9.6 g/dL (12.0-16.0); LYMPHOCYTES # (AUTO) 0.4 (1.0-3.2); LYMPHOCYTES % 2.6 % (18.0-39.1); MEAN CORPUSCULAR HEMOGLOBIN 29.1 pg (28-32); MEAN CORPUSCULAR HGB CONC 27.8 g/dL (31-35); MEAN CORPUSCULAR VOLUME 104.5 fL (81-99); MONOCYTES % 7.5 % (4.4-11.3); NEUTROPHILS # (AUTO) 12.2 (2.1-6.9); PLATELET COUNT 230 x10e3/uL (140-360); RED CELL DISTRIBUTION WIDTH 19.3 % (11.7-14.4)
[2018-10-30 05:34] LABS: ALBUMIN 3.4 g/dL (3.5-5.0); ALBUMIN/GLOBULIN RATIO 1.1 (0.8-2.0); ANION GAP 19.4 mmol/L (8-16); CALCIUM 9.5 mg/dL (8.4-10.2); CREATININE, SERUM 2.58 mg/dL (0.57-1.11); MAGNESIUM 2.2 MG/DL (1.3-2.1); PHOSPHORUS 1.9 MG/DL (2.3-4.7); POTASSIUM 3.4 mmol/L (3.5-5.1)
[2018-10-30 06:17] LABS: INR 1.29; PROTHROMBIN TIME 17.2 seconds (11.9-14.5)
[2018-10-30 06:18] LABS: PARTIAL THROMBOPLASTIN TIME 32.2 seconds (23.8-35.5)
--- NOTE | 2018-10-30 06:51 | Diagnostic Imaging Report ---
EXAM: CHEST SINGLE (PORTABLE), AP 1 view INDICATION: CHF COMPARISON: AP view of the chest October 29, 2018 FINDINGS: LINES/TUBES: Single positions of endotracheal tube, right internal jugular vein tunneled hemodialysis catheter and central line. LUNGS: Interval reexpansion of the left upper lung. Bibasilar atelectasis. Pulmonary edema. PLEURA: Moderate bilateral layering pleural effusions. HEART AND MEDIASTINUM: Stable enlargement. BONES AND SOFT TISSUES: No acute findings. IMPRESSION: Interval reexpansion of the left upper lung. Stable moderate bilateral pleural effusions and bibasilar atelectasis. Signed by: Dr. Hiwot Gayle M.D. on 10/30/2018 6:47 AM
[2018-10-30] MEDS ORDERED: NOREPINEPHRINE 8 MG/D5W 250 ML 250 ML ONE ×3 (07:54→17:58)
[2018-10-30] MEDS: MIDODRINE HCL 5 MG TABLET PO SCH ×3 (08:00→16:53)
[2018-10-30] MEDS: CALCITRIOL 0.25 MCG CAP PO SCH (09:00)
[2018-10-30] MEDS: BALSAM PERU/CASTOR OIL 5 GM OINT...G. TP SCH (09:17)
[2018-10-30] MEDS ORDERED: SODIUM CHLORIDE 0.9% 1000ML 2,000 ML ONE (09:40)
[2018-10-30] MEDS ORDERED: SODIUM CHLORIDE 0.9% 1000ML 2,000 ML IV PRN (09:45)
[2018-10-30] MEDS ORDERED: HEPARIN SOD (PORCINE) 1000 UNIT/ML SDV IV PRN (09:45)
[2018-10-30] MEDS ORDERED: ALBUMIN 25% 12.5GM 0.25 GM/ML BTL IV PRN (09:45)
[2018-10-30] MEDS ORDERED: SODIUM CHLORIDE 0.9% 250ML 500 ML IV PRN (09:45)
[2018-10-30] MEDS ORDERED: MANNITOL 25% 12.5GM/50 ML VIAL IV PRN (09:45)
--- NOTE | 2018-10-30 09:57 | Diagnostic Imaging Report ---
PROCEDURE:X-RAY ABDOMEN - KUB COMPARISON:None. INDICATIONS:OG TUBE PLACEMENT FINDINGS: The right hemiabdomen is not included on the examination. Examination is markedly limited by technique and patient body habitus. Enteric tube tip projects over the left upper quadrant, over the expected region of the gastric fundus. No gross dilatation of small bowel loops. Degenerative disc changes of the lumbar spine. Grossly intact skeletal structures. CONCLUSION: Orogastric tube tip projects over the expected region of the gastric fundus. Dictated by: Trevon Christensen M.D. on 10/30/2018 at 10:07 Electronically approved by: Trevon Christensen M.D. on 10/30/2018 at 10:07
[2018-10-30] MEDS ORDERED: LINEZOLID 600 MG/D5W 300ML 300 ML IV SCH (10:00)
[2018-10-30] MEDS: NOREPINEPHRINE INJ 4MG/4ML 8 MG in DEXTROSE 5% 250ML 250 ML IV PRN ×2 (13:54→22:55)
[2018-10-30] MEDS ORDERED: POTASSIUM CHLORIDE 20MEQ/100ML 100 ML IV ONE (14:45)
--- NOTE | 2018-10-30 15:01 | Progress Note ---
DATE: October 30, 2018 CARDIOLOGY PROGRESS NOTE SUBJECTIVE: Patient required intubation and mechanical ventilation due to respiratory distress and was placed on a 2nd pressor for hypotension. She is currently receiving hemodialysis and on sedation. OBJECTIVE VITAL SIGNS: Heart rate 82, respirations 20, blood pressure 99/49, oxygen saturation 100% on 60% FiO2. GENERAL: Obese, anasarca, in no apparent distress. CARDIOVASCULAR: Irregularly irregular. LUNGS: Diminished breath sounds. ABDOMEN: Soft, obese. EXTREMITIES: Edema. NEUROLOGIC: Patient is sedated. INPATIENT CARDIOVASCULAR MEDICATIONS: Reviewed. LABORATORY DATA: Reviewed. Notable for lactic acid of 21, creatinine 2.58, potassium 3.4. White blood cell count is 13.6, hemoglobin 9.6. TELEMETRY MONITORING: Atrial fibrillation with controlled ventricular response. IMPRESSION 1. Severe sepsis with hypotension. 2. Urinary tract infection. 3. Ulcmu-gb-wqnjtzu diastolic heart failure. 4. End-stage renal disease on hemodialysis. 5. Diabetes mellitus. 6. Atrial fibrillation. RECOMMENDATIONS: Her pressor requirements have increased. Would recommend arterial line for adequate blood pressure analysis. Continue to wean pressors as tolerated. Continue volume management with hemodialysis and volume removal. She is not on anticoagulation at this point in time given prior history of gastrointestinal bleed. May consider thoracentesis if oxygen status does not improve. Thank you for the consultation. Will continue to follow with you. Job#: [id number]
[2018-10-30] MEDS: MEROPENEM 500MG 500 MG in SODIUM CHLORIDE 0.9% 50ML 50 ML IV SCH (15:16)
[2018-10-30 17:09] LABS: ABG HCO3 19 mmol/L (23-28); ABG PCO2 26 mmHg (41-51); ABG PH 7.47 (7.31-7.41); ABG PO2 75 mmHg (80-105)
[2018-10-31] VITALS (57 sets, daily range): BP systolic 95–123; BP diastolic 52–87
[2018-10-31] MEDS: FENTANYL CITRATE INJ 2,000 MCG in SODIUM CHLORIDE 0.9% 250ML 210 ML IV PRN (01:00)
[2018-10-31] MEDS: VASOPRESSIN 100 UNIT in DEXTROSE 5% 100ML 100 ML IV PRN (02:24)
[2018-10-31] MEDS: NOREPINEPHRINE INJ 4MG/4ML 8 MG in DEXTROSE 5% 250ML 250 ML IV PRN ×3 (03:00→22:12)
--- NOTE | 2018-10-31 03:59 | Diagnostic Imaging Report ---
EXAM: CT ABDOMEN AND PELVIS without IV CONTRAST INDICATION: Evaluate for infection COMPARISON: None TECHNIQUE: The abdomen and pelvis were scanned using a multidetector helical scanner. Coronal and sagittal reformations were obtained. Dose modulation, iterative reconstruction, and/or weight based adjustment of the mA/kV was utilized to reduce the radiation dose to as low as reasonably achievable. Routine protocol performed. IV Contrast: None Oral Contrast: None CTDIvol has been reviewed. It is below the limits set by the Radiation Protocol Committee (RPC). FINDINGS: LOWER THORAX: Bibasilar atelectasis. Partially visualized moderate layering bilateral pleural effusions. LIVER: No masses BILIARY: Cholelithiasis without evidence of acute cholecystitis. SPLEEN: No masses PANCREAS: No masses ADRENALS: No nodules RIGHT KIDNEY: No nephroureterolithiasis or hydronephrosis. Small kidney with cortical thinning. LEFT KIDNEY: No nephroureterolithiasis or hydronephrosis. Small kidney with cortical thinning. GI TRACT: Nasal/orogastric tube terminates in the body of the stomach. No bowel obstruction. The appendix is not identified. VESSELS: Advanced atherosclerotic changes of the abdominal aorta without aneurysm. PERITONEUM/RETROPERITONEUM: Trace upper abdominal ascites and right lower quadrant.. LYMPH NODES: No lymphadenopathy REPRODUCTIVE ORGANS: Normal BLADDER: Normal SOFT TISSUES: Normal BONES: No suspicious bone lesions. IMPRESSION: No evidence of infection in the abdomen or pelvis. Bilateral pleural effusions and bibasilar atelectasis. Trace abdominal pelvic ascites. Appearance of the kidneys consistent with chronic medical renal disease. Signed by: Dr. Hiwot Gayle M.D. on 10/31/2018 3:56 AM
[2018-10-31] MEDS: LINEZOLID 600 MG/D5W 300ML 300 ML IV SCH ×2 (04:20→16:55)
[2018-10-31 04:56] LABS: BASOPHILS % 0.2 % (0.0-1.0); EOSINOPHILS % 0.1 % (0.0-6.0); HEMATOCRIT 35.6 % (34.2-44.1); HEMOGLOBIN 10.3 g/dL (12.0-16.0); LYMPHOCYTES # (AUTO) 0.4 (1.0-3.2); MEAN CORPUSCULAR HGB CONC 28.9 g/dL (31-35); MEAN CORPUSCULAR VOLUME 100.3 fL (81-99); MONOCYTES # (AUTO) 1.2 (0.2-0.8); NEUTROPHILS # (AUTO) 11.5 (2.1-6.9); NEUTROPHILS % 87.1 % (38.7-80.0); PLATELET COUNT 225 x10e3/uL (140-360); RED BLOOD COUNT 3.55 x10e6/uL (3.6-5.1); RED CELL DISTRIBUTION WIDTH 19.5 % (11.7-14.4)
[2018-10-31 05:34] LABS: ANION GAP 18.2 mmol/L (8-16); CALCIUM 9.9 mg/dL (8.4-10.2); CREATININE, SERUM 3.18 mg/dL (0.57-1.11); MAGNESIUM 2.5 MG/DL (1.3-2.1); PHOSPHORUS 2.2 MG/DL (2.3-4.7); POTASSIUM 3.2 mmol/L (3.5-5.1)
--- NOTE | 2018-10-31 06:17 | Diagnostic Imaging Report ---
EXAM: ABDOMEN-1VIEW (KUB), supine INDICATION: OG tube placement COMPARISON: CT of the abdomen and pelvis October 31, 2018 FINDINGS: See impression IMPRESSION: Limited view of the lower chest and upper abdomen for the placement of orogastric tube shows the tip in the expected location of the body of the stomach. Signed by: Dr. Hiwot Gayle M.D. on 10/31/2018 6:14 AM
[2018-10-31 07:11] LABS: ANISOCYTOSIS SLIGHT; BAND NEUTROPHILS % (MANUAL) 1 %; LYMPHOCYTES % (MANUAL) 3 % (19-48); MONOCYTES % (MANUAL) 9 % (3.4-9.0); NEUTROPHILS % (MANUAL) 87 % (40-74); NUCLEATED RED BLOOD CELLS 2; PLATELET ESTIMATE ADEQUATE; PLATELET MORPHOLOGY COMMENT NORMAL
[2018-10-31] MEDS: POLYETHYLENE GLYCOL 3350 17 GM PACK PO SCH (08:18)
[2018-10-31] MEDS: CALCITRIOL 0.25 MCG CAP PO SCH (08:18)
[2018-10-31] MEDS: MIDODRINE HCL 5 MG TABLET PO SCH ×3 (08:18→16:14)
[2018-10-31] MEDS: BALSAM PERU/CASTOR OIL 5 GM OINT...G. TP SCH (08:18)
[2018-10-31] MEDS: POTASSIUM CHLORIDE 20MEQ/15ML UDC NG SCH ×2 (08:19→13:19)
[2018-10-31] MEDS ORDERED: ALBUTEROL/IPRATROPIUM 3 ML NEB ONE (10:52)
[2018-10-31] MEDS: ALBUTEROL/IPRATROPIUM 3 ML NEB NEB SCH ×2 (11:01→18:55)
--- NOTE | 2018-10-31 16:13 | Progress Note ---
DATE: October 31, 2018 NEPHROLOGY PROGRESS NOTE SUBJECTIVE: The patient is intubated and sedated. She grimaces to touch, but is unable to provide any review of systems. PHYSICAL EXAMINATION GENERAL: Adult obese female, intubated on ventilator, in no acute distress. VITAL SIGNS: Blood pressure 100/68, heart rate 84 per minute. LUNGS: Bilateral rales. HEART: Normal heart sounds. ABDOMEN: Soft, obese. EXTREMITIES: Positive for pitting edema. LABORATORY FINDINGS: Noted and reviewed. ASSESSMENT AND PLAN: Acute kidney injury on end-stage renal disease. The patient will be receiving hemodialysis per orders, ultrafiltration as tolerated. Discussed with dialysis nurse and ICU nurse at the bedside. Job#: [id number] NICOLÁS
[2018-10-31] MEDS: MEROPENEM 500MG 500 MG in SODIUM CHLORIDE 0.9% 50ML 50 ML IV SCH (16:14)
[2018-11-01] VITALS (69 sets, daily range): BP systolic 94–128; BP diastolic 44–99
[2018-11-01] MEDS: ALBUTEROL/IPRATROPIUM 3 ML NEB NEB SCH ×4 (02:15→19:00)
[2018-11-01] MEDS: LINEZOLID 600 MG/D5W 300ML 300 ML IV SCH ×2 (04:10→16:20)
[2018-11-01] MEDS: MIDODRINE HCL 5 MG TABLET PO SCH ×3 (08:39→16:20)
[2018-11-01] MEDS: BALSAM PERU/CASTOR OIL 5 GM OINT...G. TP SCH (08:39)
[2018-11-01] MEDS: POLYETHYLENE GLYCOL 3350 17 GM PACK PO SCH (08:39)
[2018-11-01] MEDS: CALCITRIOL 0.25 MCG CAP PO SCH (08:39)
[2018-11-01] MEDS: PANTOPRAZOLE 40 MG 10ML VIAL IV SCH (12:13)
[2018-11-01] MEDS: NOREPINEPHRINE INJ 4MG/4ML 8 MG in DEXTROSE 5% 250ML 250 ML IV PRN ×2 (12:14→22:18)
[2018-11-01] MEDS: FENTANYL CITRATE INJ 2,000 MCG in SODIUM CHLORIDE 0.9% 250ML 210 ML IV PRN (12:14)
[2018-11-01] MEDS: MEROPENEM 500MG 500 MG in SODIUM CHLORIDE 0.9% 50ML 50 ML IV SCH (16:20)
[2018-11-01] MEDS: HEPARIN SOD (PORCINE) 5,000 UNIT/ML VIAL SC SCH (21:09)
[2018-11-02] VITALS (101 sets, daily range): BP systolic 69–139; BP diastolic 34–95
[2018-11-02] MEDS: LINEZOLID 600 MG/D5W 300ML 300 ML IV SCH ×2 (04:00→18:31)
[2018-11-02 04:38] LABS: BASOPHILS % 0.1 % (0.0-1.0); EOSINOPHILS # (AUTO) 0.3 (0.0-0.4); EOSINOPHILS % 2.3 % (0.0-6.0); HEMATOCRIT 35.2 % (34.2-44.1); HEMOGLOBIN 10.5 g/dL (12.0-16.0); LYMPHOCYTES # (AUTO) 0.6 (1.0-3.2); LYMPHOCYTES % 5.1 % (18.0-39.1); MEAN CORPUSCULAR HEMOGLOBIN 29.3 pg (28-32); MEAN CORPUSCULAR HGB CONC 29.8 g/dL (31-35); MEAN CORPUSCULAR VOLUME 98.3 fL (81-99); MONOCYTES # (AUTO) 0.8 (0.2-0.8); NEUTROPHILS # (AUTO) 9.6 (2.1-6.9); NEUTROPHILS % 84.4 % (38.7-80.0); PLATELET COUNT 146 x10e3/uL (140-360); RED BLOOD COUNT 3.58 x10e6/uL (3.6-5.1); RED CELL DISTRIBUTION WIDTH 18.8 % (11.7-14.4)
[2018-11-02 04:56] LABS: ANION GAP 17.5 mmol/L (8-16); CALCIUM 9.8 mg/dL (8.4-10.2); CREATININE, SERUM 4.1 mg/dL (0.57-1.11); POTASSIUM 4.5 mmol/L (3.5-5.1)
--- NOTE | 2018-11-02 06:39 | Diagnostic Imaging Report ---
EXAM: CHEST SINGLE (PORTABLE), AP 1 view INDICATION: Intubated COMPARISON: AP view of the chest October 30, 2018 FINDINGS: LINES/TUBES: Stable endotracheal tube, right internal jugular vein central line and tunneled hemodialysis catheter and nasal/orogastric tube. LUNGS: Bibasilar atelectasis. PLEURA: Moderate right and small left pleural effusions. HEART AND MEDIASTINUM: Stable appearance. BONES AND SOFT TISSUES: No acute findings. IMPRESSION: Stable bilateral pleural effusions. Signed by: Dr. Hiwot Gayle M.D. on 11/02/2018 6:35 AM
[2018-11-02] MEDS: ALBUTEROL/IPRATROPIUM 3 ML NEB NEB SCH ×4 (07:54→19:00)
[2018-11-02] MEDS: CALCITRIOL 0.25 MCG CAP PO SCH (08:20)
[2018-11-02] MEDS: POLYETHYLENE GLYCOL 3350 17 GM PACK PO SCH (08:20)
[2018-11-02] MEDS: MIDODRINE HCL 5 MG TABLET PO SCH ×3 (08:20→18:31)
[2018-11-02] MEDS: NOREPINEPHRINE INJ 4MG/4ML 8 MG in DEXTROSE 5% 250ML 250 ML IV PRN (08:20)
[2018-11-02] MEDS: PANTOPRAZOLE 40 MG 10ML VIAL IV SCH (08:20)
[2018-11-02] MEDS: HEPARIN SOD (PORCINE) 5,000 UNIT/ML VIAL SC SCH ×2 (08:23→21:11)
[2018-11-02] MEDS: FENTANYL CITRATE INJ 2,000 MCG in SODIUM CHLORIDE 0.9% 250ML 210 ML IV PRN (10:18)
[2018-11-02] MEDS: MEROPENEM 500MG 500 MG in SODIUM CHLORIDE 0.9% 50ML 50 ML IV SCH (14:39)
[2018-11-02] MEDS: BALSAM PERU/CASTOR OIL 5 GM OINT...G. TP SCH (14:39)
[2018-11-02] MEDS ORDERED: NOREPINEPHRINE 8 MG/D5W 250 ML 250 ML ONE (16:12)
--- NOTE | 2018-11-02 16:54 | Progress Note ---
DATE: November 02, 2018 PROGRESS NOTE SUBJECTIVE: Patient currently still intubated, alert with eyes open. No apparent distress. No other events. Pressor requirements decreasing. OBJECTIVE VITAL SIGNS: Temperature is 97.4, heart rate 98, respirations are 16, blood pressure is 89/44. GENERAL: Obese, edematous, chronically ill-appearing woman, no apparent distress, intubated. CARDIOVASCULAR: Irregular rate, irregular rhythm. LUNGS: Diminished breath sounds. EXTREMITIES: Edematous. ALL CARDIOVASCULAR MEDICATIONS: Reviewed. LABORATORY DATA: Reviewed. Hemoglobin 10.5. Creatinine 4.1, potassium 4.5. IMPRESSIONS 1. Severe sepsis with hypotension. 2. Urinary tract infection. 3. Tnzsy-yq-qpllpjv diastolic heart failure. 4. End-stage renal disease, on hemodialysis. 5. Diabetes mellitus. 6. Atrial fibrillation. RECOMMENDATIONS: Again recommend placing arterial line. Pressor requirements have decreased somewhat; however, I suspect that blood pressure cuff is not accurately reading her pressures. Continue other current cardiovascular medications and antibiotic therapies. No anticoagulation given. Prior history of gastrointestinal bleed. Will continue to follow. Job#: [id number] DAVIN
[2018-11-02] MEDS ORDERED: FENTANYL CITRATE/PF 100MCG/2 ML INJ ONE ×2 (22:31→22:53)
[2018-11-02] MEDS ORDERED: SODIUM CHLORIDE 0.9% 250ML 250 ML ONE (22:52)
[2018-11-03] VITALS (84 sets, daily range): BP systolic 74–125; BP diastolic 47–119
[2018-11-03] MEDS: FENTANYL CITRATE INJ 2,000 MCG in SODIUM CHLORIDE 0.9% 250ML 210 ML IV PRN (00:49)
[2018-11-03] MEDS: LINEZOLID 600 MG/D5W 300ML 300 ML IV SCH ×2 (04:12→17:38)
[2018-11-03 04:27] LABS: EOSINOPHILS # (AUTO) 0.1 (0.0-0.4); EOSINOPHILS % 1.3 % (0.0-6.0); HEMATOCRIT 32.1 % (34.2-44.1); HEMOGLOBIN 9.3 g/dL (12.0-16.0); LYMPHOCYTES # (AUTO) 0.3 (1.0-3.2); LYMPHOCYTES % 3.2 % (18.0-39.1); MONOCYTES # (AUTO) 0.7 (0.2-0.8); MONOCYTES % 7.3 % (4.4-11.3); NEUTROPHILS # (AUTO) 8.8 (2.1-6.9); NEUTROPHILS % 87.7 % (38.7-80.0); PLATELET COUNT 124 x10e3/uL (140-360); RED BLOOD COUNT 3.21 x10e6/uL (3.6-5.1); RED CELL DISTRIBUTION WIDTH 19.2 % (11.7-14.4)
[2018-11-03 04:46] LABS: ANION GAP 16.8 mmol/L (8-16); CALCIUM 9.4 mg/dL (8.4-10.2); CREATININE, SERUM 3.02 mg/dL (0.57-1.11); MAGNESIUM 2.5 MG/DL (1.3-2.1); POTASSIUM 3.8 mmol/L (3.5-5.1)
[2018-11-03] MEDS: ALBUTEROL/IPRATROPIUM 3 ML NEB NEB SCH ×4 (07:15→18:35)
[2018-11-03] MEDS: MIDODRINE HCL 5 MG TABLET PO SCH ×3 (08:45→17:38)
[2018-11-03] MEDS: POLYETHYLENE GLYCOL 3350 17 GM PACK PO SCH (09:06)
[2018-11-03] MEDS: CALCITRIOL 0.25 MCG CAP PO SCH (09:06)
[2018-11-03] MEDS: PANTOPRAZOLE 40 MG 10ML VIAL IV SCH (09:06)
[2018-11-03] MEDS: HEPARIN SOD (PORCINE) 5,000 UNIT/ML VIAL SC SCH ×2 (09:07→21:46)
[2018-11-03] MEDS: BALSAM PERU/CASTOR OIL 5 GM OINT...G. TP SCH (09:08)
[2018-11-03] MEDS: ALBUMIN 5% 250 ML IV SCH ×2 (12:58→14:00)
[2018-11-03] MEDS: MEROPENEM 500MG 500 MG in SODIUM CHLORIDE 0.9% 50ML 50 ML IV SCH (17:38)
[2018-11-03] MEDS: NOREPINEPHRINE 8 MG/D5W 250 ML 250 ML IV PRN (23:37)
[2018-11-04] VITALS (55 sets, daily range): BP systolic 64–120; BP diastolic 41–81
[2018-11-04] MEDS: ALBUTEROL/IPRATROPIUM 3 ML NEB NEB SCH ×4 (02:40→19:00)
[2018-11-04] MEDS: LINEZOLID 600 MG/D5W 300ML 300 ML IV SCH ×2 (04:00→16:43)
[2018-11-04 05:01] LABS: BASOPHILS % 0.1 % (0.0-1.0); EOSINOPHILS # (AUTO) 0.1 (0.0-0.4); EOSINOPHILS % 0.9 % (0.0-6.0); HEMATOCRIT 31.6 % (34.2-44.1); HEMOGLOBIN 9.4 g/dL (12.0-16.0); LYMPHOCYTES # (AUTO) 0.3 (1.0-3.2); LYMPHOCYTES % 2.4 % (18.0-39.1); MEAN CORPUSCULAR HEMOGLOBIN 29.2 pg (28-32); MEAN CORPUSCULAR HGB CONC 29.7 g/dL (31-35); MEAN CORPUSCULAR VOLUME 98.1 fL (81-99); MONOCYTES # (AUTO) 0.9 (0.2-0.8); MONOCYTES % 6.4 % (4.4-11.3); NEUTROPHILS # (AUTO) 12.6 (2.1-6.9); NEUTROPHILS % 89.6 % (38.7-80.0); PLATELET COUNT 111 x10e3/uL (140-360); RED BLOOD COUNT 3.22 x10e6/uL (3.6-5.1); RED CELL DISTRIBUTION WIDTH 18.9 % (11.7-14.4)
[2018-11-04 05:29] LABS: ANION GAP 17.4 mmol/L (8-16); CALCIUM 9.3 mg/dL (8.4-10.2); CREATININE, SERUM 3.52 mg/dL (0.57-1.11); MAGNESIUM 2.2 MG/DL (1.3-2.1); PHOSPHORUS 2.3 MG/DL (2.3-4.7); POTASSIUM 3.4 mmol/L (3.5-5.1)
[2018-11-04] MEDS: MIDODRINE HCL 5 MG TABLET PO SCH ×3 (08:00→16:43)
[2018-11-04 08:31] LABS: ANISOCYTOSIS SLIGHT; EOSINOPHILS % (MANUAL) 1 % (0-7); HYPOCHROMASIA SLIGHT; LYMPHOCYTES % (MANUAL) 3 % (19-48); MONOCYTES % (MANUAL) 4 % (3.4-9.0); NEUTROPHILS % (MANUAL) 92 % (40-74); RBC MORPHOLOGY COMMENT NORMAL
[2018-11-04 08:32] LABS: PLATELET ESTIMATE SLIGHTLY DECREASED; PLATELET MORPHOLOGY COMMENT FEW GIANT
[2018-11-04] MEDS: HEPARIN SOD (PORCINE) 5,000 UNIT/ML VIAL SC SCH ×2 (09:00→21:00)
[2018-11-04] MEDS: POLYETHYLENE GLYCOL 3350 17 GM PACK PO SCH (09:00)
[2018-11-04] MEDS: CALCITRIOL 0.25 MCG CAP PO SCH (09:00)
[2018-11-04] MEDS: PANTOPRAZOLE 40 MG 10ML VIAL IV SCH (09:00)
[2018-11-04] MEDS: BALSAM PERU/CASTOR OIL 5 GM OINT...G. TP SCH (09:30)
[2018-11-04] MEDS: MEROPENEM 500MG 500 MG in SODIUM CHLORIDE 0.9% 50ML 50 ML IV SCH (16:43)
--- NOTE | 2018-11-04 18:45 | Diagnostic Imaging Report ---
EXAM: CHEST SINGLE (PORTABLE), AP 1 view INDICATION: CHF hypertension UTI. COMPARISON: AP view of the chest January 03, 2018. FINDINGS: Examination is somewhat limited due to underpenetration. LINES/TUBES: ET tube is somewhat low in position, approximately 1.8 cm proximal to the ritchie, however, unchanged. Stable right internal jugular vein central line and tunneled hemodialysis catheter. NG/orogastric tube distal portion is not well visualized. LUNGS: Bilateral low lung volumes. Bilateral pulmonary venous congestion. Bilateral lower lobe subsegmental atelectasis. PLEURA: Moderate right and small left pleural effusions again observed. HEART AND MEDIASTINUM: The cardiac silhouette remains enlarged. BONES AND SOFT TISSUES: No acute findings. IMPRESSION: Allowing for technical differences, no significant interval change. ET tube somewhat low in position; consider withdrawing 1 to 2 cm. Signed by: Dr. Chelsey Almaraz M.D. on 11/04/2018 6:41 PM
[2018-11-05] VITALS (96 sets, daily range): BP systolic 69–131; BP diastolic 34–110
[2018-11-05] MEDS: ALBUTEROL/IPRATROPIUM 3 ML NEB NEB SCH ×4 (02:45→19:20)
[2018-11-05] MEDS: LINEZOLID 600 MG/D5W 300ML 300 ML IV SCH ×2 (04:00→16:00)
[2018-11-05 04:57] LABS: BASOPHILS % 0.1 % (0.0-1.0); EOSINOPHILS # (AUTO) 0.2 (0.0-0.4); HEMATOCRIT 29.8 % (34.2-44.1); LYMPHOCYTES # (AUTO) 0.4 (1.0-3.2); LYMPHOCYTES % 2.8 % (18.0-39.1); MEAN CORPUSCULAR HEMOGLOBIN 29.4 pg (28-32); MEAN CORPUSCULAR HGB CONC 30.2 g/dL (31-35); MEAN CORPUSCULAR VOLUME 97.4 fL (81-99); MONOCYTES % 6.8 % (4.4-11.3); NEUTROPHILS % 88.9 % (38.7-80.0); PLATELET COUNT 87 x10e3/uL (140-360); RED BLOOD COUNT 3.06 x10e6/uL (3.6-5.1); RED CELL DISTRIBUTION WIDTH 19.3 % (11.7-14.4)
[2018-11-05 08:27] LABS: ANION GAP 17.4 mmol/L (8-16); CREATININE, SERUM 2.57 mg/dL (0.57-1.11); POTASSIUM 3.4 mmol/L (3.5-5.1)
[2018-11-05] MEDS: MIDODRINE HCL 5 MG TABLET PO SCH ×3 (08:31→16:00)
[2018-11-05] MEDS: POLYETHYLENE GLYCOL 3350 17 GM PACK PO SCH (08:32)
[2018-11-05] MEDS: PANTOPRAZOLE 40 MG 10ML VIAL IV SCH (08:32)
[2018-11-05] MEDS: BALSAM PERU/CASTOR OIL 5 GM OINT...G. TP SCH (08:32)
[2018-11-05] MEDS: CALCITRIOL 0.25 MCG CAP PO SCH (08:32)
[2018-11-05 10:21] LABS: ABG HCO3 26 mmol/L (23-28); ABG PCO2 54 mmHg (41-51); ABG PH 7.29 (7.31-7.41); ABG PO2 93 mmHg (80-105)
[2018-11-05] MEDS: VANCOMYCIN 250MG/5ML ORAL SOLN PO SCH ×3 (11:56→23:33)
--- NOTE | 2018-11-05 18:03 | Diagnostic Imaging Report ---
Exam: Ultrasound chest Clinical history: CHF. Pleural effusions. Comparison: None. Technique: Using a curved array transducer, real-time imaging was performed of the chest evaluate pleural effusion. Findings: There are bilateral small volume pleural effusions. Impression: Bilateral small volume pleural effusions. Signed by: Dr. Chelsey Almaraz M.D. on 11/05/2018 5:59 PM
[2018-11-05] MEDS ORDERED: HYDROMORPHONE 1MG/1ML INJ IV PRN (19:30)
[2018-11-05] MEDS: HYDROMORPHONE 2MG/ML 2 MG/ML ML IV PRN (20:06)
[2018-11-06] VITALS (104 sets, daily range): BP systolic 78–135; BP diastolic 43–82
[2018-11-06] MEDS: HYDROMORPHONE 2MG/ML 2 MG/ML ML IV PRN ×3 (01:26→17:10)
[2018-11-06] MEDS: ALBUTEROL/IPRATROPIUM 3 ML NEB NEB SCH ×4 (03:20→18:55)
[2018-11-06] MEDS: LINEZOLID 600 MG/D5W 300ML 300 ML IV SCH (04:31)
[2018-11-06 05:11] LABS: BASOPHILS % 0.1 % (0.0-1.0); EOSINOPHILS # (AUTO) 0.2 (0.0-0.4); EOSINOPHILS % 1.2 % (0.0-6.0); HEMATOCRIT 32.3 % (34.2-44.1); HEMOGLOBIN 9.9 g/dL (12.0-16.0); LYMPHOCYTES # (AUTO) 0.5 (1.0-3.2); LYMPHOCYTES % 3.3 % (18.0-39.1); MEAN CORPUSCULAR HEMOGLOBIN 29.4 pg (28-32); MEAN CORPUSCULAR HGB CONC 30.7 g/dL (31-35); MEAN CORPUSCULAR VOLUME 95.8 fL (81-99); MONOCYTES # (AUTO) 0.9 (0.2-0.8); NEUTROPHILS # (AUTO) 12.6 (2.1-6.9); NEUTROPHILS % 88.8 % (38.7-80.0); PLATELET COUNT 96 x10e3/uL (140-360); RED BLOOD COUNT 3.37 x10e6/uL (3.6-5.1); RED CELL DISTRIBUTION WIDTH 19.1 % (11.7-14.4)
[2018-11-06 05:22] LABS: ANION GAP 19.3 mmol/L (8-16); CALCIUM 9.2 mg/dL (8.4-10.2); CREATININE, SERUM 3.27 mg/dL (0.57-1.11); POTASSIUM 3.3 mmol/L (3.5-5.1)
[2018-11-06] MEDS: VANCOMYCIN 250MG/5ML ORAL SOLN PO SCH ×3 (06:14→17:17)
[2018-11-06 08:44] LABS: ABG HCO3 26 mmol/L (23-28); ABG PCO2 49 mmHg (41-51); ABG PH 7.33 (7.31-7.41); ABG PO2 105 mmHg (80-105)
[2018-11-06] MEDS: CALCITRIOL 0.25 MCG CAP PO SCH (08:53)
[2018-11-06] MEDS: MIDODRINE HCL 5 MG TABLET PO SCH ×3 (08:53→17:17)
[2018-11-06] MEDS: PANTOPRAZOLE 40 MG 10ML VIAL IV SCH (08:53)
[2018-11-06] MEDS: POLYETHYLENE GLYCOL 3350 17 GM PACK PO SCH (09:00)
[2018-11-06] MEDS ORDERED: DEXAMETHASONE SOD PHOS INJ 4 MG/ML VIAL ONE (09:06)
[2018-11-06] MEDS ORDERED: DEXAMETHASONE SOD PHOS INJ 4 MG/ML VIAL IV ONE (09:10)
[2018-11-06] MEDS ORDERED: HEPARIN SOD (PORCINE) 1000 UNIT/ML SDV ONE ×2 (09:14→11:58)
[2018-11-06] MEDS ORDERED: ALBUMIN 25% 12.5GM 200 ML IV ONE (09:15)
--- NOTE | 2018-11-06 15:50 | Progress Note ---
DATE: November 06, 2018 CARDIOLOGY PROGRESS NOTE SUBJECTIVE: Patient was extubated, currently on noninvasive positive pressure ventilation. Patient nods yes when asked if her breathing has improved and nods no if she has chest pain. OBJECTIVE VITAL SIGNS: She is afebrile. Heart rate is 106, respirations are 16, blood pressure is 89/53 via right forearm cuff. Oxygen saturation 99% on BiPAP. GENERAL: Obese, edematous, woman, no apparent distress. CARDIOVASCULAR: Regular rate and rhythm. LUNGS: Diminished breath sounds. ABDOMEN: Obese, soft. EXTREMITIES: Improving edema. CARDIOVASCULAR MEDICATIONS: Reviewed. LABORATORY DATA: Reviewed. Hemoglobin 9.9. Potassium 3.3, sodium 133. Chest ultrasound shows bilateral small pleural effusions. IMPRESSIONS 1. Sepsis with hypotension. 2. Urinary tract infection. 3. Mebcw-lv-fiaouvg diastolic heart failure. 4. End-stage renal disease, on hemodialysis. 5. Diabetes mellitus. 6. Atrial fibrillation. RECOMMENDATIONS: Continue to wean norepinephrine as tolerated. Continue midodrine for blood pressure support. Again, I suspect that her blood pressure is not accurate given her edematous status and it being taken on her right forearm. Continue volume removal with hemodialysis. Patient's respiratory status has improved and is currently extubated. Continue all other current cardiovascular medications. No anticoagulation at this point in time given prior history of gastrointestinal bleeding. Job#: [id number] DAVIN
[2018-11-06] MEDS: BALSAM PERU/CASTOR OIL 60 GM OINT...G. TP SCH (17:09)
[2018-11-06] MEDS ORDERED: MEROPENEM 500MG 500 MG in SODIUM CHLORIDE 0.9% 50ML 50 ML IV SCH (18:00)
[2018-11-07] VITALS (102 sets, daily range): BP systolic 62–125; BP diastolic 25–85
[2018-11-07] MEDS: VANCOMYCIN 250MG/5ML ORAL SOLN PO SCH ×5 (00:11→23:09)
[2018-11-07] MEDS: NOREPINEPHRINE 8 MG/D5W 250 ML 250 ML IV PRN (00:16)
[2018-11-07] MEDS: ALBUTEROL/IPRATROPIUM 3 ML NEB NEB SCH ×4 (03:10→19:08)
[2018-11-07 06:20] LABS: ALBUMIN 3.3 g/dL (3.5-5.0); ALBUMIN/GLOBULIN RATIO 1.1 (0.8-2.0); ANION GAP 17.6 mmol/L (8-16); CALCIUM 9.1 mg/dL (8.4-10.2); CREATININE, SERUM 2.81 mg/dL (0.57-1.11); MAGNESIUM 2.1 MG/DL (1.3-2.1); PHOSPHORUS 4.3 MG/DL (2.3-4.7); POTASSIUM 3.6 mmol/L (3.5-5.1)
[2018-11-07] MEDS: CALCITRIOL 0.25 MCG CAP PO SCH (08:45)
[2018-11-07] MEDS: MIDODRINE HCL 5 MG TABLET PO SCH ×3 (08:45→16:58)
[2018-11-07] MEDS: POLYETHYLENE GLYCOL 3350 17 GM PACK PO SCH (08:45)
[2018-11-07] MEDS: PANTOPRAZOLE 40 MG 10ML VIAL IV SCH (08:45)
[2018-11-07] MEDS: BALSAM PERU/CASTOR OIL 60 GM OINT...G. TP SCH ×3 (08:45→16:30)
[2018-11-07] MEDS ORDERED: HEPARIN SOD (PORCINE) 1000 UNIT/ML SDV ONE (10:47)
--- NOTE | 2018-11-07 11:20 | Progress Note ---
DATE: November 07, 2018 CARDIOLOGY PROGRESS NOTE SUBJECTIVE: Patient is unable to report. OBJECTIVE VITAL SIGNS: Temperature not recorded, pulse 108, respiratory rate 16, blood pressure 80/46, oxygen saturation 100% on BiPAP. CARDIOVASCULAR MEDICATIONS: Norepinephrine IV drip, midodrine 10 mg q. 6 hours p.o. LABS: WBC 14.7, hemoglobin 9.9, hematocrit 32.3, platelet 96. Sodium 135, potassium 3.6, BUN 29, creatinine 2.81. PHYSICAL EXAM GENERAL: Awake, resting comfortably in bed, continues to wear her BiPAP, does not appear to be in any acute distress. NECK: Supple. LUNGS: Diminished breath sounds throughout. No wheezing, no crackles or rhonchi noted. CARDIOVASCULAR: Regular rate and rhythm. S3 noted. ABDOMEN: Round, soft, nontender. LOWER EXTREMITIES: Improving edema. IMPRESSION 1. Sepsis with hypotension. 2. Urinary tract infection. 3. Vugwz-yp-zmomtin diastolic heart failure. 4. End-stage renal disease, on hemodialysis. 5. Diabetes mellitus. 6. Atrial fibrillation however today. RECOMMENDATIONS: Continue vasopressor support at this time. Continue to monitor blood pressure closely. We suspect that her blood pressure is not accurate due to edematous status. Continue to monitor volume status while on hemodialysis. Technical Applications Scientist managing pulmonary status. No anticoagulation indicated at this time due to recent history of GI bleed. Patient remains on normal sinus rhythm and continues to be monitored on telemetry. Thank you. We will continue to follow this patient very closely. Dictated by Elissa Mulligan NP Job#: [id number]
[2018-11-07] MEDS: HYDROCORTISONE SOD SUCCINATE 100 MG VIAL IV SCH (23:09)
[2018-11-08] VITALS (92 sets, daily range): BP systolic 69–126; BP diastolic 38–96
[2018-11-08] MEDS: ALBUTEROL/IPRATROPIUM 3 ML NEB NEB SCH ×4 (03:04→19:15)
[2018-11-08 05:30] LABS: BASOPHILS % 0.1 % (0.0-1.0); HEMATOCRIT 33.8 % (34.2-44.1); HEMOGLOBIN 9.9 g/dL (12.0-16.0); LYMPHOCYTES # (AUTO) 0.3 (1.0-3.2); LYMPHOCYTES % 1.9 % (18.0-39.1); MEAN CORPUSCULAR HEMOGLOBIN 29.4 pg (28-32); MEAN CORPUSCULAR HGB CONC 29.3 g/dL (31-35); MEAN CORPUSCULAR VOLUME 100.3 fL (81-99); MONOCYTES # (AUTO) 0.5 (0.2-0.8); MONOCYTES % 3.6 % (4.4-11.3); NEUTROPHILS # (AUTO) 13.2 (2.1-6.9); NEUTROPHILS % 93.6 % (38.7-80.0); PLATELET COUNT 77 x10e3/uL (140-360); RED BLOOD COUNT 3.37 x10e6/uL (3.6-5.1); RED CELL DISTRIBUTION WIDTH 18.5 % (11.7-14.4)
[2018-11-08 05:59] LABS: ALBUMIN 3.7 g/dL (3.5-5.0); ALBUMIN/GLOBULIN RATIO 1.3 (0.8-2.0); ANION GAP 18.5 mmol/L (8-16); CALCIUM 9.4 mg/dL (8.4-10.2); CREATININE, SERUM 3.62 mg/dL (0.57-1.11); POTASSIUM 3.5 mmol/L (3.5-5.1)
[2018-11-08] MEDS: VANCOMYCIN 250MG/5ML ORAL SOLN PO SCH ×3 (06:17→17:30)
[2018-11-08] MEDS: HYDROCORTISONE SOD SUCCINATE 100 MG VIAL IV SCH ×3 (06:17→22:50)
[2018-11-08] MEDS: POLYETHYLENE GLYCOL 3350 17 GM PACK PO SCH (07:40)
[2018-11-08] MEDS: PANTOPRAZOLE 40 MG 10ML VIAL IV SCH (08:42)
[2018-11-08] MEDS: MIDODRINE HCL 5 MG TABLET PO SCH ×3 (08:42→17:30)
[2018-11-08] MEDS: CALCITRIOL 0.25 MCG CAP PO SCH (08:42)
--- NOTE | 2018-11-08 09:49 | Diagnostic Imaging Report ---
Examination: Single AP view of the chest. COMPARISON: November 04, 2018 INDICATION: Congestive heart failure DISCUSSION: Lines/tubes: Dialysis catheter with tip overlying the cavoatrial junction. Right IJ catheter with tip overlying the cavoatrial junction. Lungs: Low lung volumes with pulmonary edema. Pleura: Bilateral effusions. Heart and mediastinum: The heart and the mediastinum are unremarkable. Bones and soft tissues: No acute bony abnormalities. Degenerative changes in the thoracic spine. IMPRESSION: 1. Stable pulmonary edema and pleural effusions. Signed by: Dr. Stephane Gee M.D. on 11/08/2018 9:46 AM
--- NOTE | 2018-11-08 11:35 | Progress Note ---
DATE: November 08, 2018 CARDIOLOGY PROGRESS NOTE SUBJECTIVE: Patient is unable to report. She continues to be on BiPAP; however, she nods no to any chest pain. She does endorse some pain in her back. OBJECTIVE VITAL SIGNS: Temperature 97.4, pulse 101, respiratory rate 16, blood pressure 106/48, oxygen saturation 100% on BiPAP. GENERAL: Alert and oriented, resting comfortably in bed. NECK: Supple. No JVD noted. LUNGS: Diminished breath sounds throughout with scattered rhonchi and wheezes. CARDIOVASCULAR: Regular rate and rhythm. S3 noted. Tachycardic. ABDOMEN: Soft, nontender. EXTREMITIES: Lower extremities, 2+ nonpitting edema noted. CARDIOVASCULAR MEDICATIONS 1. Midodrine 10 mg p.o. q.8 hours. 2. Norepinephrine IV titrate. LABS: WBC 14.05, hemoglobin 9.9, hematocrit 33.8, platelets 77. Sodium 131, potassium 3.5, BUN 43, creatinine 3.62, AST 9, ALT 10. MICROBIOLOGY: MRSA in sputum. E. coli and VRE in urine. IMAGING: Chest x-ray with a stable pulmonary edema and pleural effusion. TELEMETRY: Sinus tachycardia. IMPRESSION 1. Sepsis with hypotension. 2. Urinary tract infection, Escherichia coli and vancomycin-resistant Enterococcus. 3. Llvhc-co-rjpawtm diastolic heart failure. 4. End-stage renal disease, on hemodialysis. 5. Diabetes mellitus. 6. Atrial fibrillation; however, she remains in sinus rhythm at this point. RECOMMENDATIONS: Continue vasopressor support. Continue to monitor blood pressure very closely. Blood pressure has been noted to be improved with addition of a steroid yesterday. Monitor pulmonary status, office equipment technician managing. No anticoagulation indicated at this point due to recent history of GI bleed and also patient remains in sinus rhythm. We will continue to follow this patient very closely. Dictated by: Elissa Mulligan NP Job#: [id number] PKU
[2018-11-08] MEDS: BALSAM PERU/CASTOR OIL 60 GM OINT...G. TP SCH ×3 (12:09→17:30)
[2018-11-09] VITALS (75 sets, daily range): BP systolic 57–146; BP diastolic 36–113
[2018-11-09] MEDS: VANCOMYCIN 250MG/5ML ORAL SOLN PO SCH ×5 (01:39→23:13)
[2018-11-09] MEDS: ALBUTEROL/IPRATROPIUM 3 ML NEB NEB SCH ×4 (02:00→19:00)
[2018-11-09] MEDS: HYDROCORTISONE SOD SUCCINATE 100 MG VIAL IV SCH ×3 (05:53→22:21)
[2018-11-09] MEDS: HYDROMORPHONE 2MG/ML 2 MG/ML ML IV PRN (08:00)
[2018-11-09 08:22] LABS: BASOPHILS % 0.1 % (0.0-1.0); HEMATOCRIT 36.3 % (34.2-44.1); HEMOGLOBIN 10.7 g/dL (12.0-16.0); LYMPHOCYTES # (AUTO) 0.4 (1.0-3.2); LYMPHOCYTES % 2.4 % (18.0-39.1); MEAN CORPUSCULAR HEMOGLOBIN 29.2 pg (28-32); MEAN CORPUSCULAR HGB CONC 29.5 g/dL (31-35); MEAN CORPUSCULAR VOLUME 98.9 fL (81-99); MONOCYTES # (AUTO) 0.7 (0.2-0.8); MONOCYTES % 4.9 % (4.4-11.3); NEUTROPHILS # (AUTO) 13.6 (2.1-6.9); NEUTROPHILS % 91.4 % (38.7-80.0); PLATELET COUNT 68 x10e3/uL (140-360); RED BLOOD COUNT 3.67 x10e6/uL (3.6-5.1); RED CELL DISTRIBUTION WIDTH 18.2 % (11.7-14.4)
[2018-11-09] MEDS: MIDODRINE HCL 5 MG TABLET PO SCH ×3 (08:25→16:27)
[2018-11-09 08:40] LABS: ANION GAP 21.5 mmol/L (8-16); CALCIUM 9.2 mg/dL (8.4-10.2); CREATININE, SERUM 4.42 mg/dL (0.57-1.11); POTASSIUM 3.5 mmol/L (3.5-5.1)
[2018-11-09 08:45] LABS: BAND NEUTROPHILS % (MANUAL) 9 %; LYMPHOCYTES % (MANUAL) 4 % (19-48); MONOCYTES % (MANUAL) 6 % (3.4-9.0); NEUTROPHILS % (MANUAL) 81 % (40-74); PLATELET ESTIMATE MODERATELY DECREASED; PLATELET MORPHOLOGY COMMENT NORMAL; RBC MORPHOLOGY COMMENT NORMAL
[2018-11-09 08:46] LABS: ANISOCYTOSIS S; POIKILOCYTOSIS S
[2018-11-09] MEDS: CALCITRIOL 0.25 MCG CAP PO SCH (09:00)
[2018-11-09] MEDS: PANTOPRAZOLE 40 MG 10ML VIAL IV SCH (09:00)
[2018-11-09] MEDS: POLYETHYLENE GLYCOL 3350 17 GM PACK PO SCH (09:00)
[2018-11-09] MEDS: BALSAM PERU/CASTOR OIL 60 GM OINT...G. TP SCH ×3 (09:00→16:27)
--- NOTE | 2018-11-09 12:09 | Diagnostic Imaging Report ---
Examination: Single AP view of the chest. COMPARISON: November 08, 2018 INDICATION: Congestive heart failure, hypotension DISCUSSION: Lines/tubes: Dialysis catheter with tip overlying the right atrium. Enteric tube with the distal tip not visualized. Lungs: Stable pulmonary edema and bilateral effusions. Heart and mediastinum: Cardiomegaly. Bones and soft tissues: No acute bony abnormalities. IMPRESSION: 1. Stable pulmonary edema with pleural effusions Signed by: Dr. Stephane Gee M.D. on 11/09/2018 12:06 PM
--- NOTE | 2018-11-09 12:33 | Progress Note ---
DATE: November 09, 2018 CARDIOLOGY PROGRESS NOTE SUBJECTIVE: Patient on BiPAP, lethargic. OBJECTIVE VITAL SIGNS: Temperature 96.1, heart rate 101, respirations 17, oxygen saturation 98% on BiPAP. GENERAL: She is chronically ill-appearing, obese woman lying in bed on BiPAP, lethargic. CARDIOVASCULAR: Tachycardic, regular rhythm. LUNGS: Diminished breath sounds with scattered rales. ABDOMEN: Soft, obese. EXTREMITIES: Edematous. MEDICATIONS: Reviewed. LABORATORY DATA: Reviewed. Hemoglobin 10.7. Creatinine 4.4. Sodium 130. Chest x-ray is pending. IMPRESSION 1. Ctycz-io-jlgmwwb respiratory failure with hypoxia. 2. Sepsis with hypotension. 3. Urinary tract infection. 4. Vzcuv-fp-svddyvr diastolic heart failure. 5. End-stage renal disease. 6. Diabetes mellitus. 7. Paroxysmal atrial fibrillation. RECOMMENDATIONS: Continue to wean vasopressor support. Midodrine started for blood pressure support as well. Likely will need dialysis with volume removal today given her respiratory status. Will check chest x-ray once available. Otherwise, continue close hemodynamic and telemetry monitoring. Job#: [id number]
[2018-11-09 17:19] LABS: ABG HCO3 24 mmol/L (23-28); ABG PCO2 66 mmHg (41-51); ABG PH 7.18 (7.31-7.41); ABG PO2 106 mmHg (80-105)
[2018-11-09 19:53] LABS: ABG HCO3 25 mmol/L (23-28); ABG PCO2 47 mmHg (41-51); ABG PH 7.33 (7.31-7.41); ABG PO2 103 mmHg (80-105)
[2018-11-10] VITALS (52 sets, daily range): BP systolic 80–133; BP diastolic 39–112
[2018-11-10] MEDS: ALBUTEROL/IPRATROPIUM 3 ML NEB NEB SCH ×4 (03:05→19:10)
[2018-11-10] MEDS: HYDROCORTISONE SOD SUCCINATE 100 MG VIAL IV SCH ×3 (05:21→22:44)
[2018-11-10] MEDS: VANCOMYCIN 250MG/5ML ORAL SOLN PO SCH ×4 (05:21→23:17)
[2018-11-10] MEDS: MIDODRINE HCL 5 MG TABLET PO SCH ×3 (08:00→16:00)
[2018-11-10] MEDS: CALCITRIOL 0.25 MCG CAP PO SCH (08:54)
[2018-11-10] MEDS: POLYETHYLENE GLYCOL 3350 17 GM PACK PO SCH (08:54)
[2018-11-10] MEDS: BALSAM PERU/CASTOR OIL 60 GM OINT...G. TP SCH ×3 (08:54→17:00)
[2018-11-10] MEDS: PANTOPRAZOLE 40 MG 10ML VIAL IV SCH (08:54)
[2018-11-10 08:56] LABS: BASOPHILS % 0.1 % (0.0-1.0); HEMATOCRIT 33.5 % (34.2-44.1); HEMOGLOBIN 10.1 g/dL (12.0-16.0); LYMPHOCYTES # (AUTO) 0.2 (1.0-3.2); LYMPHOCYTES % 1.1 % (18.0-39.1); MEAN CORPUSCULAR HEMOGLOBIN 29.2 pg (28-32); MEAN CORPUSCULAR HGB CONC 30.1 g/dL (31-35); MEAN CORPUSCULAR VOLUME 96.8 fL (81-99); MONOCYTES # (AUTO) 0.7 (0.2-0.8); MONOCYTES % 4.8 % (4.4-11.3); NEUTROPHILS % 93.1 % (38.7-80.0); PLATELET COUNT 74 x10e3/uL (140-360); RED BLOOD COUNT 3.46 x10e6/uL (3.6-5.1); RED CELL DISTRIBUTION WIDTH 18.2 % (11.7-14.4)
[2018-11-10 09:15] LABS: ANION GAP 24.2 mmol/L (8-16); CALCIUM 8.7 mg/dL (8.4-10.2); CREATININE, SERUM 3.95 mg/dL (0.57-1.11); POTASSIUM 4.2 mmol/L (3.5-5.1)
[2018-11-10] MEDS ORDERED: ACETAMINOPHEN 1000 MG/100 ML IV PRN (10:30)
--- NOTE | 2018-11-10 13:11 | Progress Note ---
DATE: November 10, 2018 CARDIOLOGY PROGRESS NOTE SUBJECTIVE: Patient is currently lethargic on BiPAP. No other events. OBJECTIVE VITAL SIGNS: Temperature is 97.3, heart rate is 109, respirations are 22, blood pressure is 110/52, oxygen saturation is 99% on 4 L a minute. GENERAL: Lethargic obese woman in mild respiratory distress. CARDIOVASCULAR: Tachycardic with ectopy. Regular rhythm. LUNGS: Diminished breath sounds. ABDOMEN: Soft and obese. EXTREMITIES: Edematous. CARDIOVASCULAR MEDICATIONS: Reviewed. LABORATORY DATA: Reviewed. Hemoglobin 10.1, white blood cell count is 14.9. Sodium 132, creatinine 3.9. Telemetry monitoring revealed sinus tachycardia with premature ventricular complexes. IMPRESSION 1. Leelh-jb-ihshipj respiratory failure with hypoxia. 2. Sepsis with hypertension. 3. Urinary tract infection. 4. Uovcc-tc-wzmzpnq diastolic heart failure. 5. End-stage renal disease. 6. Diabetes mellitus. 7. Paroxysmal atrial fibrillation. 8. Premature ventricular complexes. RECOMMENDATIONS: Continue noninvasive positive pressure per pulmonary critical care. The patient will require dialysis with volume removal today. Continue to wean pressors as tolerated, and monitoring for pressure support. Otherwise, continue close hemodynamic and telemetry monitoring. Job#: [id number] LIZBETH
[2018-11-10] MEDS ORDERED: DEXTROSE 50% SYRINGE 50 ML IV PRN (17:00)
[2018-11-10] MEDS ORDERED: INSULIN DETEMIR 100 UNIT/ML PEN SQ SCH (21:00)
[2018-11-10] MEDS: NOREPINEPHRINE 8 MG/D5W 250 ML 250 ML IV PRN (21:17)
[2018-11-11] VITALS (27 sets, daily range): BP systolic 80–130; BP diastolic 40–112
[2018-11-11] MEDS: ALBUTEROL/IPRATROPIUM 3 ML NEB NEB SCH ×4 (01:50→19:05)
[2018-11-11] MEDS: VANCOMYCIN 250MG/5ML ORAL SOLN PO SCH ×3 (06:00→18:42)
[2018-11-11] MEDS: HYDROCORTISONE SOD SUCCINATE 100 MG VIAL IV SCH ×3 (06:00→22:50)
[2018-11-11] MEDS: BALSAM PERU/CASTOR OIL 60 GM OINT...G. TP SCH ×3 (08:00→23:03)
[2018-11-11 08:32] LABS: BASOPHILS % 0.1 % (0.0-1.0); HEMATOCRIT 35.3 % (34.2-44.1); HEMOGLOBIN 10.4 g/dL (12.0-16.0); LYMPHOCYTES # (AUTO) 0.2 (1.0-3.2); LYMPHOCYTES % 1.2 % (18.0-39.1); MEAN CORPUSCULAR HGB CONC 29.5 g/dL (31-35); MEAN CORPUSCULAR VOLUME 98.3 fL (81-99); MONOCYTES # (AUTO) 0.9 (0.2-0.8); MONOCYTES % 6.4 % (4.4-11.3); NEUTROPHILS # (AUTO) 12.7 (2.1-6.9); NEUTROPHILS % 91.1 % (38.7-80.0); PLATELET COUNT 54 x10e3/uL (140-360); RED BLOOD COUNT 3.59 x10e6/uL (3.6-5.1); RED CELL DISTRIBUTION WIDTH 17.8 % (11.7-14.4)
[2018-11-11] MEDS: POLYETHYLENE GLYCOL 3350 17 GM PACK PO SCH (08:45)
[2018-11-11] MEDS: PANTOPRAZOLE 40 MG 10ML VIAL IV SCH (08:45)
[2018-11-11] MEDS: MIDODRINE HCL 5 MG TABLET PO SCH ×3 (08:45→15:49)
[2018-11-11] MEDS: CALCITRIOL 0.25 MCG CAP PO SCH (08:45)
[2018-11-11 08:51] LABS: ANION GAP 22.5 mmol/L (8-16); CALCIUM 9.3 mg/dL (8.4-10.2); CREATININE, SERUM 3.78 mg/dL (0.57-1.11); MAGNESIUM 2.2 MG/DL (1.3-2.1); POTASSIUM 3.5 mmol/L (3.5-5.1)
--- NOTE | 2018-11-11 10:19 | Progress Note ---
DATE: November 11, 2018 CARDIOLOGY PROGRESS NOTE SUBJECTIVE: Patient on BiPAP. Mild shortness of breath. No chest pain. Made DNR/DNI today by primary team. OBJECTIVE VITAL SIGNS: Patient is afebrile. Heart rate is 112. Respirations are 22. Blood pressure is 120/64. Oxygen saturation is 99% on BiPAP with 4 liters of oxygen. GENERAL: Patient is an elderly, obese woman on BiPAP, lying in bed. CARDIOVASCULAR: She is tachycardic, regular rhythm with ectopy. LUNGS: Scattered rhonchi. Decreased breath sounds on anterior examination. ABDOMEN: Soft, obese. EXTREMITIES: Edematous. Cardiovascular medications reviewed. Laboratory data reviewed. Hemoglobin 10.4. Creatinine 3.78. IMPRESSION 1. Sepsis with hypotension. 2. Urinary tract infection. 3. Tftzi-ky-hiiknmo diastolic heart failure. 4. End-stage renal disease. 5. Asito-ds-catwbsl respiratory failure with hypoxia. RECOMMENDATIONS: Continue BiPAP. A modified DNR and DNI noted per RN. Patient wishes to continue with vasopressor support, however, but does not wish to receive chest compressions, defibrillation, or oral intubation with mechanical ventilation. Continue all other current cardiovascular medications. Job#: [id number] EV
--- NOTE | 2018-11-11 11:04 | Consultation ---
DATE OF CONSULTATION: November 11, 2018 REASON FOR CONSULTATION: End-stage renal disease and volume overload. HISTORY OF PRESENT ILLNESS: Patient is currently on BiPAP, so history is from reviewing the other doctors' notes and talking to the ICU nurse taking care of her. The patient is an 83-year-old female with past medical history of ESRD, being followed by Dr. Justin Myers and Dr. Gwyn Howe as an outpatient. Goes to [facility] Friday, Friday and Friday. Diabetes type 2, chronic AFib, anemia of chronic kidney disease, who was originally admitted on October 27, 2018, with hypotension after dialysis. Apparently, the patient got hypotensive during dialysis and was given a liter bolus and was sent to the emergency room of [facility]. Another group of nephrologists was following her. During this hospitalization, she had a rapid response and had to get intubated and started on pressors, Levophed and vasopressin. The patient was see by ID as urine culture was positive for ESBL E. coli, VRE and pseudomonas. Sputum culture was positive for MRSA. Antibiotics were given appropriately to her. Eventually, the patient got extubated after a lot of volume removal as the patient had gross volume overload. The patient is currently on BiPAP. Still has volume overload. Apparently, the patient does not want chest compression or reintubation and is now modified DNR. The patient was also found to have C. difficile and on p.o. vancomycin in insolation. PAST MEDICAL HISTORY: As above. PAST SURGICAL HISTORY: Dialysis catheter placement. ALLERGIES: PENICILLIN, SULFA. FAMILY HISTORY: No history of kidney disease. SOCIAL HISTORY: No history of tobacco, alcohol or intravenous drug abuse. MEDICATIONS: Currently, the patient is on: 1. Vancomycin 250 mg p.o. q.6 h. 2. Hydrocortisone 100 mg IV q.8 h. 3. Norepinephrine 7 mcg per minute. 4. Pantoprazole. 5. Calcitriol. 6. Insulin. REVIEW OF SYSTEMS: Limited as the patient is on BiPAP. Positive shortness of breath. No abdominal pain. Tolerating the tube feeding at 30 mL per hour. PHYSICAL EXAMINATION VITALS: Blood pressure 120/64, pulse 118, respirations 22, temperature 97.3, 100% on BiPAP. GENERAL: The patient opens her eyes on BiPAP. Denied shortness of breath. LUNGS: Decreased breath sounds at the bases with coarse breath sounds bilaterally. HEART: S1 and S2, tachycardic. ABDOMEN: Soft, obese. Positive abdominal wall edema. EXTREMITIES: Positive edema. NEUROLOGIC: Follows simple commands. LABS: Sodium 131, potassium 3.5, chloride 93, CO2 19, BUN 55, creatinine 3.78, glucose 397. WBC 13.9, white count 10.4, hemoglobin 54. Chest x-ray done on 11/09/2018: Stable pulmonary edema and pleural effusion with cardiomegaly. ASSESSMENT AND PLAN 1. End-stage renal disease. Continue with Friday, Friday and Friday dialysis. 2. Volume overload, probably edema. Ultrafiltration with hemodialysis as tolerated. The patient will need another UF again in the morning. 3. Acute respiratory failure on BiPAP. Ultrafiltration as blood pressure tolerates to help with the volume overload and pulmonary edema. 4. Clostridium difficile colitis on oral vancomycin. 5. Morbid obesity. 6. Anemia of chronic kidney disease. Hemoglobin is less than 11. Will start the patient on low-dose Epogen. 7. Diabetes, type 2, on sliding scale. 8. Septic shock on intravenous steroid and antibiotic. Infectious disease is following. I want to thank Dr. Musa for the consult. Will follow the patient with you. Job#: [id number]
[2018-11-11] MEDS: EPOETIN ALFA 10000 UNIT/ML VIAL SC SCH (11:18)
[2018-11-11] MEDS: INSULIN DETEMIR 100 UNIT/ML PEN SQ SCH ×2 (13:17→21:00)
[2018-11-11] MEDS ORDERED: HEPARIN SOD (PORCINE) 1000 UNIT/ML SDV ONE (14:22)
[2018-11-11] MEDS: INSULIN LISPRO 100 UNIT/1 ML 3ML VIAL SQ SCH ×2 (15:51→21:00)
[2018-11-12] VITALS (23 sets, daily range): BP systolic 85–127; BP diastolic 35–97
[2018-11-12] MEDS: VANCOMYCIN 250MG/5ML ORAL SOLN PO SCH ×2 (00:40→05:11)
[2018-11-12] MEDS: ALBUTEROL/IPRATROPIUM 3 ML NEB NEB SCH ×4 (03:10→19:50)
[2018-11-12] MEDS: HYDROCORTISONE SOD SUCCINATE 100 MG VIAL IV SCH ×3 (05:11→22:00)
[2018-11-12] MEDS ORDERED: SODIUM CHLORIDE 0.9% 500ML 500 ML ONE (05:55)
[2018-11-12] MEDS ORDERED: SODIUM CHLORIDE 0.9% 500ML 500 ML IV SCH (06:15)
[2018-11-12] MEDS: INSULIN LISPRO 100 UNIT/1 ML 3ML VIAL SQ SCH ×4 (07:30→20:35)
[2018-11-12] MEDS: MIDODRINE HCL 5 MG TABLET PO SCH ×3 (09:00→18:21)
[2018-11-12] MEDS: PANTOPRAZOLE 40 MG 10ML VIAL IV SCH (09:26)
[2018-11-12] MEDS: BALSAM PERU/CASTOR OIL 60 GM OINT...G. TP SCH ×3 (09:26→17:00)
[2018-11-12] MEDS: POLYETHYLENE GLYCOL 3350 17 GM PACK PO SCH (09:26)
[2018-11-12] MEDS: CALCITRIOL 0.25 MCG CAP PO SCH (09:26)
[2018-11-12] MEDS: INSULIN DETEMIR 100 UNIT/ML PEN SQ SCH ×2 (09:43→20:29)
[2018-11-12] MEDS ORDERED: HEPARIN SOD/SOD CHLORIDE 1,000 ML IV ONE (10:30)
--- NOTE | 2018-11-12 13:17 | Progress Note ---
DATE: November 12, 2018 CARDIOLOGY PROGRESS NOTE SUBJECTIVE: Patient remains hypotensive on noninvasive cuff. After arterial line placement, the patient's blood pressure was 130/90 with a mean arterial pressure greater than 80 mmHg. The patient has no chest pain or shortness of breath above her baseline. She is lethargic on BiPAP. OBJECTIVE VITAL SIGNS: Temperature is 98.7, heart rate is 108, respirations are 24, blood pressure is 130/88, oxygen saturation 100% on BiPAP. GENERAL: A chronically ill-appearing woman, obese, lethargic. CARDIOVASCULAR: She is irregularly irregular and tachycardiac. LUNGS: Diminished breath sounds. ABDOMEN: Soft and obese. EXTREMITIES: Edematous. CARDIOVASCULAR MEDICATIONS: Reviewed. LABORATORY DATA: Reviewed. Telemetry monitoring revealed atrial fibrillation with rapid ventricular response. IMPRESSION 1. Sepsis due to urinary tract infection, Clostridium difficile. 2. Wzevd-mv-txtjksk diastolic heart failure. 3. End-stage renal disease. 4. Slyrh-ul-ixslvcy respiratory failure with hypoxia. RECOMMENDATIONS: After arterial line placement, the patient is in fact hypertensive on norepinephrine infusion. Continue to wean this vasopressor. Once vasopressor has been weaned off, may remove brachial line and hemostasis should be achieved via manual pressure. Otherwise, continue current cardiovascular medications. Once able to tolerate, start metoprolol for better heart rate control. No anticoagulation given her severe comorbidities at this point in time. Otherwise, continue volume management with hemodialysis. Job#: [id number] LIZBETH
--- NOTE | 2018-11-12 15:03 | Operative Report ---
DATE OF PROCEDURE: November 12, 2018 PROCEDURES PERFORMED 1. Arterial line insertion into the right brachial artery. 2. Ultrasound-guided arterial access. PREOPERATIVE DIAGNOSIS: Septic shock. POSTOPERATIVE DIAGNOSIS: Septic shock. ESTIMATED BLOOD LOSS: Less than 10 mL. SPECIMENS REMOVED: None. PROCEDURE DETAILS: After informed consent was obtained, the patient's arm was prepped and draped in the usual sterile fashion. Using ultrasound guidance, the right radial artery was attempted to be cannulated for arterial blood pressure monitoring. However, this proved to be a very small less than 1-2 mm vessel. Next, prepped and draped the brachial area in the usual sterile fashion. Two percent lidocaine was infiltrated over the site. Using ultrasound guidance, the right brachial artery was accessed via the modified Seldinger technique. A 4-Danish micro-sheath was placed. This was then connected to an arterial monitoring transducer and sutured in place. The patient tolerated the procedure well with no immediate complications, and remained in the intensive care unit in stable, but guarded condition. Job#: [id number] SD
[2018-11-12 20:16] LABS: ABG HCO3 29 mmol/L (23-28); ABG PCO2 119 mmHg (41-51); ABG PO2 110 mmHg (80-105)
[2018-11-13] VITALS (23 sets, daily range): BP systolic 87–112; BP diastolic 26–97
[2018-11-13] MEDS: ALBUTEROL/IPRATROPIUM 3 ML NEB NEB SCH ×4 (03:05→19:15)
[2018-11-13 03:56] LABS: ABG HCO3 27 mmol/L (23-28); ABG PCO2 69 mmHg (41-51); ABG PO2 211 mmHg (80-105)
[2018-11-13] MEDS: HYDROCORTISONE SOD SUCCINATE 100 MG VIAL IV SCH ×4 (05:52→22:15)
[2018-11-13] MEDS ORDERED: MORPHINE SULFATE 2 MG/ML SYR IV PRN (06:30)
[2018-11-13] MEDS ORDERED: MORPHINE SULFATE INJ 4 MG/ML INJ IV PRN (06:45)
[2018-11-13] MEDS: INSULIN LISPRO 100 UNIT/1 ML 3ML VIAL SQ SCH ×4 (07:30→21:00)
[2018-11-13 07:31] LABS: BASOPHILS % 0.3 % (0.0-1.0); EOSINOPHILS % 0.1 % (0.0-6.0); HEMATOCRIT 36.3 % (34.2-44.1); HEMOGLOBIN 10.3 g/dL (12.0-16.0); LYMPHOCYTES # (AUTO) 0.3 (1.0-3.2); LYMPHOCYTES % 2.9 % (18.0-39.1); MEAN CORPUSCULAR HEMOGLOBIN 28.7 pg (28-32); MEAN CORPUSCULAR HGB CONC 28.4 g/dL (31-35); MEAN CORPUSCULAR VOLUME 101.1 fL (81-99); MONOCYTES # (AUTO) 0.9 (0.2-0.8); MONOCYTES % 7.4 % (4.4-11.3); NEUTROPHILS # (AUTO) 10.1 (2.1-6.9); NEUTROPHILS % 87.1 % (38.7-80.0); PLATELET COUNT 68 x10e3/uL (140-360); RED BLOOD COUNT 3.59 x10e6/uL (3.6-5.1); RED CELL DISTRIBUTION WIDTH 17.4 % (11.7-14.4)
[2018-11-13 07:51] LABS: ANION GAP 22.5 mmol/L (8-16); CALCIUM 9.6 mg/dL (8.4-10.2); CREATININE, SERUM 3.68 mg/dL (0.57-1.11); MAGNESIUM 2.1 MG/DL (1.3-2.1); POTASSIUM 3.5 mmol/L (3.5-5.1)
[2018-11-13] MEDS: MIDODRINE HCL 5 MG TABLET PO SCH ×3 (08:00→16:00)
[2018-11-13] MEDS: INSULIN DETEMIR 100 UNIT/ML PEN SQ SCH ×2 (09:00→22:07)
[2018-11-13] MEDS: CALCITRIOL 0.25 MCG CAP PO SCH (09:00)
[2018-11-13] MEDS: POLYETHYLENE GLYCOL 3350 17 GM PACK PO SCH (09:00)
[2018-11-13] MEDS: PANTOPRAZOLE 40 MG 10ML VIAL IV SCH (09:00)
[2018-11-13] MEDS: BALSAM PERU/CASTOR OIL 60 GM OINT...G. TP SCH ×3 (09:00→17:06)
[2018-11-13 09:55] LABS: HYPOCHROMASIA SLIGHT; TARGET CELLS FEW
[2018-11-13 09:56] LABS: ANISOCYTOSIS SLIGHT; PLATELET ESTIMATE MODERATELY DECREASED; PLATELET MORPHOLOGY COMMENT FEW LARGE; RBC MORPHOLOGY COMMENT ABNORMAL
[2018-11-13] MEDS: EPOETIN ALFA 10000 UNIT/ML VIAL SC SCH (10:15)
--- NOTE | 2018-11-13 12:25 | Diagnostic Imaging Report ---
EXAM: CHEST SINGLE (PORTABLE), AP Portable DATE: 11/13/2018 Time stamp on exam: 12:03 PM INDICATION: CHF COMPARISON: 11/09/2018 FINDINGS: LINES/TUBES: Right IJ tunneled hemodialysis catheter and nasogastric tube again noted. LUNGS: Slight worsening pulmonary edema. PLEURA: Mild pleural effusion on the left with moderate on the right. HEART AND MEDIASTINUM: Enlarged cardiac silhouette. BONES AND SOFT TISSUES: No acute findings. IMPRESSION: Slight worsening pulmonary edema. Signed by: Dr. Jose Alejandro Matthews DO on 11/13/2018 12:22 PM
--- NOTE | 2018-11-13 16:26 | Progress Note ---
DATE: November 13, 2018 CARDIOLOGY PROGRESS NOTE SUBJECTIVE: Patient still on BiPAP and lethargic. Opens eyes. OBJECTIVE VITAL SIGNS: Patient is afebrile. Heart rate is 95, respirations are 20, blood pressure is 103/40 with a mean arterial pressure of 55, and oxygen saturation 100% on BiPAP. GENERAL: Chronically ill-appearing elderly woman on BiPAP and lethargic. CARDIOVASCULAR: Irregularly irregular. Normal rate. LUNGS: Diminished breath sounds. ABDOMEN: Soft and obese. EXTREMITIES: Edematous. CARDIOVASCULAR MEDICATIONS: Reviewed. LABORATORY DATA: Reviewed. Hemoglobin 11. Creatinine 3.68. Chest x-ray shows slight worsening pulmonary edema. IMPRESSION 1. Sepsis with hypotension. 2. Tqhsa-ol-ijipwmh diastolic heart failure. 3. End-stage renal disease. 4. Icfdh-eu-zghstwa respiratory failure with hypoxia. RECOMMENDATIONS: Continue to wean vasopressors and norepinephrine as tolerated. Continue current infectious and pulmonary management per critical care teams. She otherwise has a stable cardiovascular status. Will continue current cardiovascular medications. No anticoagulation was given for atrial fibrillation in the past due to gastrointestinal bleed and severe comorbidities. Will need adequate volume removal with hemodialysis. Job#: [id number] LIZBETH
[2018-11-14] VITALS (23 sets, daily range): BP systolic 85–123; BP diastolic 17–69
[2018-11-14] MEDS: ALBUTEROL/IPRATROPIUM 3 ML NEB NEB SCH ×3 (02:05→19:30)
[2018-11-14] MEDS: INSULIN LISPRO 100 UNIT/1 ML 3ML VIAL SQ SCH ×4 (07:30→21:50)
[2018-11-14] MEDS: MIDODRINE HCL 5 MG TABLET PO SCH ×3 (08:00→16:00)
[2018-11-14 08:24] LABS: BASOPHILS % 0.3 % (0.0-1.0); HEMATOCRIT 32.5 % (34.2-44.1); HEMOGLOBIN 9.2 g/dL (12.0-16.0); LYMPHOCYTES # (AUTO) 0.4 (1.0-3.2); LYMPHOCYTES % 3.5 % (18.0-39.1); MEAN CORPUSCULAR HEMOGLOBIN 29.1 pg (28-32); MEAN CORPUSCULAR HGB CONC 28.3 g/dL (31-35); MEAN CORPUSCULAR VOLUME 102.8 fL (81-99); MONOCYTES # (AUTO) 0.6 (0.2-0.8); MONOCYTES % 5.4 % (4.4-11.3); NEUTROPHILS # (AUTO) 9.4 (2.1-6.9); NEUTROPHILS % 88.7 % (38.7-80.0); PLATELET COUNT 96 x10e3/uL (140-360); RED BLOOD COUNT 3.16 x10e6/uL (3.6-5.1); RED CELL DISTRIBUTION WIDTH 17.9 % (11.7-14.4)
[2018-11-14] MEDS: CALCITRIOL 0.25 MCG CAP PO SCH (08:43)
[2018-11-14] MEDS: POLYETHYLENE GLYCOL 3350 17 GM PACK PO SCH (08:43)
[2018-11-14] MEDS: PANTOPRAZOLE 40 MG 10ML VIAL IV SCH (08:43)
[2018-11-14] MEDS: BALSAM PERU/CASTOR OIL 60 GM OINT...G. TP SCH ×3 (08:43→17:47)
[2018-11-14] MEDS: INSULIN DETEMIR 100 UNIT/ML PEN SQ SCH ×2 (09:00→21:51)
[2018-11-14 09:40] LABS: ANISOCYTOSIS MODERATE; BAND NEUTROPHILS % (MANUAL) 1 %; METAMYELOCYTES % (MANUAL) 1 % (0-0); MONOCYTES % (MANUAL) 1 % (3.4-9.0); NEUTROPHILS % (MANUAL) 97 % (40-74); PLATELET ESTIMATE SLIGHTLY DECREASED; PLATELET MORPHOLOGY COMMENT NORMAL; RBC MORPHOLOGY COMMENT ABNORMAL
[2018-11-14 10:53] LABS: CALCIUM 9.4 mg/dL (8.4-10.2); CREATININE, SERUM 2.46 mg/dL (0.57-1.11)
[2018-11-14] MEDS: VANCOMYCIN 250MG/5ML ORAL SOLN NG SCH ×3 (12:00→23:59)
[2018-11-14 12:03] LABS: ABG HCO3 23 mmol/L (23-28); ABG PCO2 44 mmHg (41-51); ABG PH 7.33 (7.31-7.41); ABG PO2 145 mmHg (80-105)
[2018-11-14] MEDS: HYDROCORTISONE SOD SUCCINATE 100 MG VIAL IV SCH (14:08)
--- NOTE | 2018-11-14 20:22 | Progress Note ---
DATE: November 14, 2018 CARDIOLOGY PROGRESS NOTE SUBJECTIVE: No major events overnight. Still on BiPAP, opens eyes. OBJECTIVE VITAL SIGNS: Afebrile, temperature 98.4, pulse 106, respiratory rate 20, blood pressure 123/53, satting 98% on BiPAP. GENERAL: Chronically ill-appearing elderly woman, on BiPAP, lethargic. CARDIOVASCULAR: Irregularly irregular rhythm. No murmurs, rubs, or gallops. LUNGS: Diminished breath sounds anteriorly. ABDOMEN: Soft, nontender. EXTREMITIES: Edematous. CARDIOVASCULAR MEDICATIONS: Reviewed. LABORATORY DATA: Reviewed. CHEST X-RAY: Showed pulmonary edema. ASSESSMENT 1. Sepsis with hypotension. 2. Rqxzi-qg-wmzdwkd diastolic heart failure. 3. End-stage renal disease. 4. Oowub-tr-pbgueaq respiratory failure with hypoxia. RECOMMENDATIONS: Blood pressure is improving. Wean vasopressors as tolerated. Infection and pulmonary management per primary team. Recommend holding management per nephrology as patient is end-stage renal. Thank you for this consult. We will continue to follow. Job#: [id number] JANEEN
[2018-11-15] VITALS (25 sets, daily range): BP systolic 79–124; BP diastolic 20–75
[2018-11-15] MEDS: NOREPINEPHRINE 8 MG/D5W 250 ML 250 ML IV PRN (00:06)
[2018-11-15] MEDS: ALBUTEROL/IPRATROPIUM 3 ML NEB NEB SCH ×4 (01:45→19:15)
[2018-11-15] MEDS: VANCOMYCIN 250MG/5ML ORAL SOLN NG SCH ×3 (06:20→18:00)
[2018-11-15] MEDS: SODIUM BICARBONATE 650 MG TAB PO SCH ×3 (06:30→22:04)
[2018-11-15] MEDS: INSULIN LISPRO 100 UNIT/1 ML 3ML VIAL SQ SCH ×4 (07:30→22:07)
--- NOTE | 2018-11-15 08:13 | Progress Note ---
DATE: November 15, 2018 CARDIOLOGY PROGRESS NOTE SUBJECTIVE: No major events overnight. She remains on low-dose norepinephrine. OBJECTIVE VITAL SIGNS: Temperature 98.5, pulse 103, respiratory rate 22, blood pressure 118/46, satting 100% on BiPAP. GENERAL: Elderly white female, no acute distress. CARDIOVASCULAR: Tachy, irregular. No murmurs, rubs, or gallops. LUNGS: Diminished breath sounds at the bases. ABDOMEN: Soft, nontender, nondistended. EXTREMITIES: 2+ edema. CARDIOVASCULAR MEDICATIONS: Reviewed. LABORATORY DATA: Reviewed. IMAGING DATA: Reviewed. TELEMETRY DATA: Reviewed, shows atrial fibrillation with RVR. ASSESSMENT 1. Septic shock. 2. Vfpxs-gr-yocxpfv diastolic heart failure. 3. End-stage renal disease. 4. Cdoim-ky-mqjamru respiratory failure with hypoxia. 5. Atrial fibrillation with rapid ventricular response. RECOMMENDATIONS: Wean pressors as tolerated. Infection management per primary team. Volume management per nephrology. No anticoagulation for atrial fibrillation given history of GI bleeding. Thank you for this consult. We will continue to follow. Job#: [id number] FARTUN
[2018-11-15] MEDS: MIDODRINE HCL 5 MG TABLET PO SCH ×3 (08:23→16:00)
[2018-11-15] MEDS: PANTOPRAZOLE 40 MG 10ML VIAL IV SCH (09:06)
[2018-11-15] MEDS: CALCITRIOL 0.25 MCG CAP PO SCH (09:06)
[2018-11-15] MEDS: POLYETHYLENE GLYCOL 3350 17 GM PACK PO SCH (09:06)
[2018-11-15] MEDS: BALSAM PERU/CASTOR OIL 60 GM OINT...G. TP SCH ×3 (09:07→17:00)
[2018-11-15] MEDS: INSULIN DETEMIR 100 UNIT/ML PEN SQ SCH ×2 (09:07→22:06)
[2018-11-15 11:28] LABS: BASOPHILS # (AUTO) 0.1 (0.0-0.1); BASOPHILS % 0.5 % (0.0-1.0); EOSINOPHILS % 0.1 % (0.0-6.0); HEMATOCRIT 33.4 % (34.2-44.1); HEMOGLOBIN 9.8 g/dL (12.0-16.0); LYMPHOCYTES # (AUTO) 0.8 (1.0-3.2); LYMPHOCYTES % 6.7 % (18.0-39.1); MEAN CORPUSCULAR HEMOGLOBIN 28.7 pg (28-32); MEAN CORPUSCULAR HGB CONC 29.3 g/dL (31-35); MEAN CORPUSCULAR VOLUME 97.9 fL (81-99); MONOCYTES # (AUTO) 0.7 (0.2-0.8); MONOCYTES % 5.5 % (4.4-11.3); NEUTROPHILS # (AUTO) 10.5 (2.1-6.9); PLATELET COUNT 121 x10e3/uL (140-360); RED BLOOD COUNT 3.41 x10e6/uL (3.6-5.1); RED CELL DISTRIBUTION WIDTH 17.6 % (11.7-14.4)
[2018-11-15 11:44] LABS: ANION GAP 17.9 mmol/L (8-16); CALCIUM 9.8 mg/dL (8.4-10.2); CREATININE, SERUM 3.52 mg/dL (0.57-1.11)
[2018-11-15 11:48] LABS: POTASSIUM 2.9 mmol/L (3.5-5.1)
[2018-11-15 12:35] LABS: BAND NEUTROPHILS % (MANUAL) 6 %; LYMPHOCYTES % (MANUAL) 8 % (19-48); MONOCYTES % (MANUAL) 5 % (3.4-9.0); NEUTROPHILS % (MANUAL) 81 % (40-74)
[2018-11-15 12:36] LABS: PLATELET ESTIMATE SLIGHTLY DECREASED; PLATELET MORPHOLOGY COMMENT NORMAL; RBC MORPHOLOGY COMMENT NORMAL
[2018-11-15] MEDS ORDERED: POTASSIUM CHLORIDE 20MEQ/15ML UDC NG ONE (13:20)
--- NOTE | 2018-11-15 14:15 | Diagnostic Imaging Report ---
EXAMINATION: CHEST SINGLE (PORTABLE) INDICATION: ^F/U ^[id number] ^[id number] COMPARISON: Chest radiograph 11/13/2018 FINDINGS: AP view TUBES and LINES: Unchanged right injury hemodialysis catheter. NG/NG tube remains unchanged. LUNGS: Lungs are well inflated. Mildly improved bilateral pulmonary edema. Bibasilar consolidations. This likely represents atelectasis. PLEURA: Small bilateral pleural effusions, unchanged. No pneumothorax. HEART AND MEDIASTINUM: Stable cardiomegaly.. BONES AND SOFT TISSUES: No acute osseous lesion. Soft tissues are unremarkable. UPPER ABDOMEN: No free air under the diaphragm. IMPRESSION: Mildly improved bilateral pulmonary edema. Stable small bilateral pleural effusions. Signed by: Dr. Jojo Sexton M.D. on 11/15/2018 2:12 PM
[2018-11-15] MEDS ORDERED: SODIUM CHLORIDE 0.9% 250ML 250 ML IV PRN (16:45)
[2018-11-15] MEDS ORDERED: ALBUMIN 25% 12.5GM 0.25 GM/ML BTL IV PRN (16:45)
[2018-11-15] MEDS ORDERED: HEPARIN SOD (PORCINE) 1000 UNIT/ML 10ML MDV IV PRN (16:45)
[2018-11-15] MEDS ORDERED: HEPARIN SOD (PORCINE) 1000 UNIT/ML SDV ONE (17:45)
[2018-11-16] VITALS (9 sets, daily range): BP systolic 88–107; BP diastolic 25–53
[2018-11-16] MEDS: VANCOMYCIN 250MG/5ML ORAL SOLN NG SCH ×3 (00:04→11:39)
[2018-11-16] MEDS: NOREPINEPHRINE 8 MG/D5W 250 ML 250 ML IV PRN (03:21)
[2018-11-16 04:29] LABS: BASOPHILS # (AUTO) 0.1 (0.0-0.1); BASOPHILS % 0.5 % (0.0-1.0); EOSINOPHILS % 0.2 % (0.0-6.0); LYMPHOCYTES # (AUTO) 0.6 (1.0-3.2); LYMPHOCYTES % 4.2 % (18.0-39.1); MEAN CORPUSCULAR HEMOGLOBIN 28.7 pg (28-32); MEAN CORPUSCULAR HGB CONC 29.4 g/dL (31-35); MEAN CORPUSCULAR VOLUME 97.7 fL (81-99); MONOCYTES # (AUTO) 0.7 (0.2-0.8); MONOCYTES % 5.3 % (4.4-11.3); NEUTROPHILS # (AUTO) 11.5 (2.1-6.9); NEUTROPHILS % 84.2 % (38.7-80.0); PLATELET COUNT 134 x10e3/uL (140-360); RED BLOOD COUNT 3.48 x10e6/uL (3.6-5.1); RED CELL DISTRIBUTION WIDTH 17.7 % (11.7-14.4)
[2018-11-16 04:46] LABS: ANION GAP 19.9 mmol/L (8-16); CREATININE, SERUM 4.21 mg/dL (0.57-1.11); POTASSIUM 3.9 mmol/L (3.5-5.1)
[2018-11-16] MEDS: SODIUM BICARBONATE 650 MG TAB PO SCH ×2 (05:59→14:00)
[2018-11-16] MEDS: ALBUTEROL/IPRATROPIUM 3 ML NEB NEB SCH ×3 (07:00→13:25)
[2018-11-16] MEDS: BALSAM PERU/CASTOR OIL 60 GM OINT...G. TP SCH ×2 (07:00)
[2018-11-16] MEDS: INSULIN LISPRO 100 UNIT/1 ML 3ML VIAL SQ SCH ×2 (07:30→11:30)
[2018-11-16 07:35] LABS: LYMPHOCYTES % (MANUAL) 5 % (19-48); METAMYELOCYTES % (MANUAL) 1 % (0-0); MONOCYTES % (MANUAL) 6 % (3.4-9.0); MYELOCYTES % (MANUAL) 2 % (0-0); NEUTROPHILS % (MANUAL) 86 % (40-74)
[2018-11-16 07:36] LABS: ANISOCYTOSIS MODERATE; HOWELL-JOLLY BODIES FEW; HYPOCHROMASIA SLIGHT; RBC MORPHOLOGY COMMENT ABNORMAL
[2018-11-16 07:37] LABS: PLATELET ESTIMATE SLIGHTLY DECREASED; PLATELET MORPHOLOGY COMMENT FEW LARGE
[2018-11-16] MEDS: MIDODRINE HCL 5 MG TABLET PO SCH ×3 (08:00→16:00)
[2018-11-16] MEDS: CALCITRIOL 0.25 MCG CAP PO SCH (09:00)
[2018-11-16] MEDS: PANTOPRAZOLE 40 MG 10ML VIAL IV SCH (09:00)
[2018-11-16] MEDS: POLYETHYLENE GLYCOL 3350 17 GM PACK PO SCH (09:00)
[2018-11-16] MEDS: INSULIN DETEMIR 100 UNIT/ML PEN SQ SCH (09:00)
[2018-11-16] MEDS: EPOETIN ALFA 10000 UNIT/ML VIAL SC SCH (10:15)
[2018-11-16] MEDS ORDERED: LORAZEPAM INJ 2 MG/ML VIAL IV PRN ×2 (13:15→15:45)
[2018-11-16] MEDS ORDERED: MORPHINE SULFATE 2 MG/ML SYR IV PRN ×3 (13:15→15:45)
[2018-11-16] MEDS ORDERED: MORPHINE SULFATE INJ 4 MG/ML INJ IV PRN ×2 (13:15→16:15)
[2018-11-16] MEDS ORDERED: MORPHINE SULFATE 2 MG/ML SYR IV STA (15:39)
== END 2018-11-16 18:25 | disposition expired | DRG 870 ==
LOC: ER 13:42 → ERHOLD 16:55 → IMCU 20:34 → ICU 10-28 09:11
PROVIDERS: ADMIT Internal Medicine; ATTEND Internal Medicine
PROC: 02HV33Z Insertion of Infusion Device into Superior Vena Cava, Percutaneous Approach (ICD-10-PCS; 2018-10-28)
PROC: 5A1D70Z Performance of Urinary Filtration, Intermittent, Less than 6 Hours Per Day (ICD-10-PCS; 2018-10-28)
PROC: 5A1955Z Respiratory Ventilation, Greater than 96 Consecutive Hours (ICD-10-PCS; 2018-10-29)
PROC: 0BH17EZ Insertion of Endotracheal Airway into Trachea, Via Natural or Artificial Opening (ICD-10-PCS; 2018-10-29)
PROC: 5A1D70Z Performance of Urinary Filtration, Intermittent, Less than 6 Hours Per Day (ICD-10-PCS; 2018-10-29)
PROC: 5A1D70Z Performance of Urinary Filtration, Intermittent, Less than 6 Hours Per Day (ICD-10-PCS; 2018-10-30)
PROC: 5A1D70Z Performance of Urinary Filtration, Intermittent, Less than 6 Hours Per Day (ICD-10-PCS; 2018-10-31)
PROC: 5A1D70Z Performance of Urinary Filtration, Intermittent, Less than 6 Hours Per Day (ICD-10-PCS; 2018-11-02)
PROC: 5A1D70Z Performance of Urinary Filtration, Intermittent, Less than 6 Hours Per Day (ICD-10-PCS; 2018-11-04)
PROC: 5A1D70Z Performance of Urinary Filtration, Intermittent, Less than 6 Hours Per Day (ICD-10-PCS; 2018-11-06)
PROC: 5A1D70Z Performance of Urinary Filtration, Intermittent, Less than 6 Hours Per Day (ICD-10-PCS; 2018-11-07)
PROC: 5A1D70Z Performance of Urinary Filtration, Intermittent, Less than 6 Hours Per Day (ICD-10-PCS; 2018-11-09)
PROC: 5A1D70Z Performance of Urinary Filtration, Intermittent, Less than 6 Hours Per Day (ICD-10-PCS; 2018-11-10)
PROC: 5A1D70Z Performance of Urinary Filtration, Intermittent, Less than 6 Hours Per Day (ICD-10-PCS; 2018-11-11)
PROC: 03HY32Z Insertion of Monitoring Device into Upper Artery, Percutaneous Approach (ICD-10-PCS; principal; 2018-11-12)
PROC: 5A1D70Z Performance of Urinary Filtration, Intermittent, Less than 6 Hours Per Day (ICD-10-PCS; 2018-11-13)
PROC: 5A1D70Z Performance of Urinary Filtration, Intermittent, Less than 6 Hours Per Day (ICD-10-PCS; 2018-11-15)
DX: A41.51 Sepsis due to Escherichia coli [E. coli] (principal); R65.21 Severe sepsis with septic shock; N18.6 End stage renal disease; I50.33 Acute on chronic diastolic (congestive) heart failure; J15.212 Pneumonia due to Methicillin resistant Staphylococcus aureus; J96.22 Acute and chronic respiratory failure with hypercapnia; J96.21 Acute and chronic respiratory failure with hypoxia; I13.2 Hypertensive heart and chronic kidney disease with heart failure and with stage 5 chronic kidney disease, or end stage renal disease; E87.1 Hypo-osmolality and hyponatremia; A04.72 Enterocolitis due to Clostridium difficile, not specified as recurrent; Z68.41 Body mass index [BMI] 40.0-44.9, adult; N17.9 Acute kidney failure, unspecified; N39.0 Urinary tract infection, site not specified; A41.89 Other specified sepsis; Z66 Do not resuscitate; E11.22 Type 2 diabetes mellitus with diabetic chronic kidney disease; E11.65 Type 2 diabetes mellitus with hyperglycemia; Z99.2 Dependence on renal dialysis; Z79.4 Long term (current) use of insulin; E11.621 Type 2 diabetes mellitus with foot ulcer; L97.519 Non-pressure chronic ulcer of other part of right foot with unspecified severity; Z79.01 Long term (current) use of anticoagulants; E87.6 Hypokalemia; D63.1 Anemia in chronic kidney disease; I95.3 Hypotension of hemodialysis; Z88.0 Allergy status to penicillin; Z88.2 Allergy status to sulfonamides; E66.01 Morbid (severe) obesity due to excess calories; Z16.12 Extended spectrum beta lactamase (ESBL) resistance; R13.10 Dysphagia, unspecified; I48.0 Paroxysmal atrial fibrillation; I49.3 Ventricular premature depolarization
CPT/HCPCS: 36415; 36556; 36600; 71045; 74018; 74176; 74470; 76604; 76937; 80048; 80053; 81001; 82150; 82533; 82550; 82553; 82805; 82948; 83036; 83605; 83690; 83735; 83880; 84100; 84484; 85025; 85610; 85730; 86022; 86704; 86706; 87040; 87070; 87086; 87186; 87205; 87340; 87493; 90962; 93005; 93306; 94002; 94003; 94640; 94660; 94667; 94668; 96366; 96372; 97139; 99284; C1751; C1769; J0171; J0330; J0456; J0696; J1100; J1644; J1720; J1940; J2020; J2060; J2185; J2250; J2270; J3480; J7030; J7040; J7050; P9047; Q4081